=== PATIENT | female | born 1980 | race Caucasian/White ===

== ENCOUNTER 2016-04-04 22:21 | Inpatient (IN) ==
[2016-04-04] MEDS ORDERED: *HR* LORazepam 2 MG/ML VIAL IM ONE (22:38)
--- NOTE | 2016-04-04 22:40 | Emergency Department Note ---
Disposition Clinical Impression: Seizures Disposition: Admitted As Inpatient Condition: Fair Time of Disposition: 06:47 General Adult HPI - General Chief complaint: ED Seizure Stated complaint: seizure Time Seen by Provider: 04/04/16 22:35 Source: patient, EMS Limitations: altered mental status Nursing Notes Reviewed: Yes Vital Signs Reviewed: Yes - History of Present Illness HPI Narrative: Pt is 36yo F arrives via squad with reported seizure activity. Squad reports upon their arrival pt appeared post ictal. No familly at bedside. Squad reports pt had vomitted twice prior to their arrival. Pt unable to provide initial history. Pain Scale: 0 - Related Data Home Medications Medication Instructions Recorded Confirmed Divalproex (24 HR) [Depakote ER 500 mg PO BID 04/05/16 04/05/16 (24 HR)] Gabapentin [Gabapentin] 600 mg PO TID 04/05/16 04/05/16 HydrOXYzine Pamoate [HydrOXYzine 50 mg PO TID 04/05/16 04/05/16 Pamoate] Gallant Carbonate 300 mg PO TID 04/05/16 04/05/16 Mirtazapine [Mirtazapine] 45 mg PO HS 04/05/16 04/05/16 Nicotine Patch [Nicoderm] 21 mg TD DAILY 04/05/16 04/05/16 Prazosin HCl [Prazosin HCl] 2 mg PO HS 04/05/16 04/05/16 Prazosin [Minipress] 1 mg PO HS 04/05/16 04/05/16 Ranitidine HCl [Acid Painter Sign Maintenance] 150 mg PO BID 04/05/16 04/05/16 RisperiDONE [Risperidone] 2 mg PO DAILY 04/05/16 04/05/16 Allergies Allergy/AdvReac Type Severity Reaction Status Date / Time Carbinoxamine [From [facility]] Allergy Swelling Verified 04/05/16 06:51 of Lip/Tongue/Throat chlorpheniramine Allergy Swelling Verified 04/05/16 06:51 [From [facility] (phenylephrin-chlorphn)] Lip/Tongue/Throat phenylephrine Allergy Swelling Verified 04/05/16 06:51 [From [facility] of (phenylephrin-chlorphn)] Lip/Tongue/Throat pseudoephedrine [From [facility]] Allergy Swelling Verified 04/05/16 06:51 of Lip/Tongue/Throat Limitations: ROS unobtainable due to patients medical condition Past Medical History - Past Medical History Medical history: Reports: GERD, hepatitis, seizures, other Surgical history: Reports: other Psychiatric history: Reports: bipolar, depression, PTSD [employer] history: Reports: bilateral tubal ligation - Social History Smoking Status: Current every day smoker Smokeless Tobacco Status: No Alcohol use: Reports: none Drug use: Reports: none, other Physical Exam - General Limitations: altered mental status General appearance: lethargic, other (somnolent) - Head Head exam: atraumatic, normocephalic - Eye Eye exam: Present: EOMI - ENT ENT exam: normal oropharynx - Expanded ENT Exam Mouth exam: Present: other (tongue bite) Teeth exam: Present: normal inspection Throat exam: Present: normal inspection - Neck Neck exam: Present: normal inspection, full ROM. Absent: tenderness - Chest Chest inspection: Present: symmetric chest wall rise - Respiratory Respiratory exam: Present: normal lung sounds bilaterally. Absent: respiratory distress - Cardiovascular Cardiovascular exam: Present: regular rate, tachycardia - Abdominal Exam Abdominal exam: Present: soft, Non-Tender - Extremities Exam Extremities exam: Present: normal inspection, full ROM, normal capillary refill - Back Exam Back exam: Present: full ROM - Expanded Neurological Exam Coma Scale Eye Opening: To Voice Coma Scale Motor Response: Obeys Commands Coma Scale Verbal Response: Confused Coma Scale Total: 13 - Psychiatric Psychiatric exam: Present: normal affect, normal mood - Skin Skin exam: Present: warm, dry, intact, normal color. Absent: rash, cyanosis, diaphoresis Course Course Narrative: Patient arrives by squad with reported seizure. Patient seen upon arrival to exam room. She is restraining and resisting, attempting to climb out of bed. She does not appear to be postictal. Nursing unable to place IV. Patient appears to be a danger to herself. We will place restraints. Haldol 10mg Ativan IM ordered. - Reevaluation(s) Reevaluation #1: Patient continues to seize and had caused her IV to be displaced. Will order additional Ativan. Time: 22:38 Reevaluation #2: Notified by nursing the patient is awake. On examination, patient is alert and oriented 3. She denies any pain. She does state she has a history of seizures , but cannot remember her neurologist. She states her only medication is Neurontin that she takes for the seizures. She states that she has been evaluated for this in the past. Nursing notified to remove restraints. Patient was recently seen in this department for suicidal ideation had been admitted for patient treatment. Upon discussion with her, she denies any suicidal or homicidal ideation, and denies taking any medications, drugs, or any attempt to hurt herself prior to arrival. Time: 00:50 - Consultations Consultation #1: Neurology was paged, and I discussed patient with Dr. Perales, who advised admit patient to hospitalist, for observation, MRI, and further evaluation. Discussed elevated WBC, as well and per Dr. Perales maybe stress related, if not source of infection. He also recommended 1 dose of Keppra 500 mg. Time: 05:53 Vital Signs Temperature 97.6 F 04/04/16 22:24 Pulse Rate 125 04/04/16 22:24 Respiratory Rate 22 04/04/16 22:24 Blood Pressure 87/70 04/04/16 22:24 O2 Sat by Pulse Oximetry 93 L 04/04/16 22:24 Temperature 98.8 F 04/05/16 07:09 Pulse Rate 109 04/05/16 07:36 Respiratory Rate 16 04/05/16 07:36 Blood Pressure 96/62 04/05/16 07:36 O2 Sat by Pulse Oximetry 95 04/05/16 07:36 Oxygen Delivery Oxygen Delivery Room Air Medical Decision Making - [facility] Narrative Medical decision making narrative: 36-year-old female by squad with reported seizure activity. Patient had had witnessed seizures here, with evidence of tongue biting and incontinence. She had been combative upon her arrival, and was placed in restraints, to allow for treatment and to prevent injury to herself. She was given Haldol and Ativan which had calmed her down. Restraints were removed once patient was no longer resisting. Her seizures resided here. And eventually I was able to have a discussion with her after seizures, she was alert and oriented 3. However throughout course she was more somnolent, although arousable. She mentions a history of Neurontin, and is unable to tell me her previous history for seizures or neurologist. She did have an elevated white blood cell count and lactic acid which I attributed to actual seizure. Drug screen and ethanol level were within normal limits. Chest x-ray negative. Head CT negative. Patient was discussed with Dr. Sánchez, who had face time with patient and agreed to admit after contacting neurologist. I had contacted neurologist and spoke with Dr. Perales, who advised admission for further evaluation and MRI,. Patient was accepted by hospitalist for inpatient evaluation and treatment Chest X-Ray 04/05/16 00:00 IMPRESSION: No evidence of acute disease. D/ / Mati Jean-Baptiste MD / Mati Jean-Baptiset MD Interpreting Provider: Mati Jean-Baptiste MD Head CT 04/05/16 00:00 IMPRESSION: Unremarkable exam. No evidence of acute intracranial hemorrhage or mass effect. D/ / Mati Jean-Baptiste MD / Mati Jean-Baptiste MD Interpreting Provider: Mati Jean-Baptiste MD - Lab Data Lab results reviewed: Yes I reviewed the patient's lab results. Result diagrams: 04/05/16 04:13 04/04/16 23:14 Lab Results 04/04/16 04/04/16 04/04/16 Range/Units 23:14 23:14 23:14 WBC 17.6 H (4.3-11.1) K/mcL RBC 3.98 (3.82-4.97) M/mcL Hgb 13.2 (11.5-15.4) g/dL Hct 39.6 (35.3-44.9) % MCV 99.5 (83.0-100.0) fL MCH 33.2 (28.0-33.3) pg MCHC 33.3 (31.6-35.5) g/dL RDW 13.9 (11.5-14.5) % Plt Count 298 (140-400) K/mcL MPV 10.5 (9.4-12.4) fL Immature Gran % 1.3 (0-4) % Seg Neutrophils % 85.6 % Lymphocytes % 7.3 % Monocytes % 5.2 % Eosinophils % 0.1 % Basophils % 0.5 % Neutrophils # 15.1 H (1.6-8.9) K/mcL Lymphocytes # 1.3 (0.6-4.6) K/mcL Monocytes # 0.9 (0.0-1.3) K/mcL Eosinophils # 0.0 (0.0-0.6) K/mcL Basophils # 0.1 (0.0-0.2) K/mcL PT 12.6 H (9.4-12.1) Seconds INR 1.2 APTT 26.8 (26.0-36.0) Seconds Sodium 143 (136-145) mEq/L Potassium 3.5 (3.5-4.5) mEq/L Chloride 108 (98-109) mEq/L Carbon Dioxide 11 L (19-29) mEq/L BUN 7 (7-20) mg/dL Creatinine 1.19 H (0.57-1.11) mg/dL Est GFR ( Amer) > 60 (> 60) Est GFR (Non-Af Amer) 52 L (> 60) BUN/Creatinine Ratio 6 (6-26) Glucose 230 H (70-99) mg/dL POC Glucose (58-89) Calculated Osmolality 301 H (280-300) Lactic Acid (0.5-2.2) mmol/L Calcium 9.3 (8.6-10.8) mg/dL Total Bilirubin 0.2 (0.2-1.2) mg/dL Direct Bilirubin < 0.1 (0.0-0.5) mg/dL Indirect Bilirubin 0.1 (0.0-1.2) mg/dL AST 16 (5-34) Units/L ALT 9 (0-55) Units/L Alkaline Phosphatase 35 L (38-126) Units/L Ammonia (18-72) mcmol/L Creatine Kinase 93 (29-168) Units/L Troponin I (0-0.03) ng/mL Serum Total Protein 7.6 (6.0-8.3) g/dL Albumin 4.1 (3.5-5.0) g/dL Globulin 3.5 (2.4-3.5) g/dL Albumin/Globulin Ratio 1.2 (1.1-2.2) Urine Color (Yellow) Urine Clarity (Clear) Urine pH (5.0-8.0) pH Units Ur Specific [place] (1.010-1.025) Urine Protein (Neg-Trace) mg/dL Urine Glucose (UA) (Normal) mg/dL Urine Ketones (Negative) mg/dL Urine Blood (Negative) Urine Nitrite (Negative) Urine Bilirubin (Negative) Urine Urobilinogen (Normal) mg/dL Ur Leukocyte Esterase (Negative) Ur Culture Indicated? (NO) Urine Test (Negative) Salicylates < 5.0 L (15-30) mg/dL Urine Opiates Screen (Twggvd=111) ng/mL Acetaminophen < 1.0 L (10-30) mcg/mL Ur Barbiturates Screen (Oowbkd=542) ng/mL Phenytoin (10-20) mcg/mL Ur Phencyclidine Scrn (Cutoff=25) ng/mL Ur Amphetamines Screen (Azpqft=1945) ng/mL U Benzodiazepines Scrn (Dxtfnt=795) ng/mL Urine Cocaine Screen (Cutoff= 300) ng/mL U Marijuana (THC) Screen (Cutoff = 50) ng/mL Ethyl Alcohol < 10 (0-10) mg/dL 04/04/16 04/04/16 04/04/16 Range/Units 23:14 23:14 23:14 WBC (4.3-11.1) K/mcL RBC (3.82-4.97) M/mcL Hgb (11.5-15.4) g/dL Hct (35.3-44.9) % MCV (83.0-100.0) fL MCH (28.0-33.3) pg MCHC (31.6-35.5) g/dL RDW (11.5-14.5) % Plt Count (140-400) K/mcL MPV (9.4-12.4) fL Immature Gran % (0-4) % Seg Neutrophils % % Lymphocytes % % Monocytes % % Eosinophils % % Basophils % % Neutrophils # (1.6-8.9) K/mcL Lymphocytes # (0.6-4.6) K/mcL Monocytes # (0.0-1.3) K/mcL Eosinophils # (0.0-0.6) K/mcL Basophils # (0.0-0.2) K/mcL PT (9.4-12.1) Seconds INR APTT (26.0-36.0) Seconds Sodium (136-145) mEq/L Potassium (3.5-4.5) mEq/L Chloride (98-109) mEq/L Carbon Dioxide (19-29) mEq/L BUN (7-20) mg/dL Creatinine (0.57-1.11) mg/dL Est GFR ( Amer) (> 60) Est GFR (Non-Af Amer) (> 60) BUN/Creatinine Ratio (6-26) Glucose (70-99) mg/dL POC Glucose (58-89) Calculated Osmolality (280-300) Lactic Acid 12.4 H* (0.5-2.2) mmol/L Calcium (8.6-10.8) mg/dL Total Bilirubin (0.2-1.2) mg/dL Direct Bilirubin (0.0-0.5) mg/dL Indirect Bilirubin (0.0-1.2) mg/dL AST (5-34) Units/L ALT (0-55) Units/L Alkaline Phosphatase (38-126) Units/L Ammonia 38 (18-72) mcmol/L Creatine Kinase (29-168) Units/L Troponin I 0.01 (0-0.03) ng/mL Serum Total Protein (6.0-8.3) g/dL Albumin (3.5-5.0) g/dL Globulin (2.4-3.5) g/dL Albumin/Globulin Ratio (1.1-2.2) Urine Color (Yellow) Urine Clarity (Clear) Urine pH (5.0-8.0) pH Units Ur Specific [place] (1.010-1.025) Urine Protein (Neg-Trace) mg/dL Urine Glucose (UA) (Normal) mg/dL Urine Ketones (Negative) mg/dL Urine Blood (Negative) Urine Nitrite (Negative) Urine Bilirubin (Negative) Urine Urobilinogen (Normal) mg/dL Ur Leukocyte Esterase (Negative) Ur Culture Indicated? (NO) Urine Test (Negative) Salicylates (15-30) mg/dL Urine Opiates Screen (Gldjgw=535) ng/mL Acetaminophen (10-30) mcg/mL Ur Barbiturates Screen (Torooy=477) ng/mL Phenytoin (10-20) mcg/mL Ur Phencyclidine Scrn (Cutoff=25) ng/mL Ur Amphetamines Screen (Hitjwr=5106) ng/mL U Benzodiazepines Scrn (Fgzqqf=934) ng/mL Urine Cocaine Screen (Cutoff= 300) ng/mL U Marijuana (THC) Screen (Cutoff = 50) ng/mL Ethyl Alcohol (0-10) mg/dL 04/05/16 04/05/16 04/05/16 Range/Units 00:01 00:04 00:04 WBC (4.3-11.1) K/mcL RBC (3.82-4.97) M/mcL Hgb (11.5-15.4) g/dL Hct (35.3-44.9) % MCV (83.0-100.0) fL MCH (28.0-33.3) pg MCHC (31.6-35.5) g/dL RDW (11.5-14.5) % Plt Count (140-400) K/mcL MPV (9.4-12.4) fL Immature Gran % (0-4) % Seg Neutrophils % % Lymphocytes % % Monocytes % % Eosinophils % % Basophils % % Neutrophils # (1.6-8.9) K/mcL Lymphocytes # (0.6-4.6) K/mcL Monocytes # (0.0-1.3) K/mcL Eosinophils # (0.0-0.6) K/mcL Basophils # (0.0-0.2) K/mcL PT (9.4-12.1) Seconds INR APTT (26.0-36.0) Seconds Sodium (136-145) mEq/L Potassium (3.5-4.5) mEq/L Chloride (98-109) mEq/L Carbon Dioxide (19-29) mEq/L BUN (7-20) mg/dL Creatinine (0.57-1.11) mg/dL Est GFR ( Amer) (> 60) Est GFR (Non-Af Amer) (> 60) BUN/Creatinine Ratio (6-26) Glucose (70-99) mg/dL POC Glucose 203 H (58-89) Calculated Osmolality (280-300) Lactic Acid (0.5-2.2) mmol/L Calcium (8.6-10.8) mg/dL Total Bilirubin (0.2-1.2) mg/dL Direct Bilirubin (0.0-0.5) mg/dL Indirect Bilirubin (0.0-1.2) mg/dL AST (5-34) Units/L ALT (0-55) Units/L Alkaline Phosphatase (38-126) Units/L Ammonia (18-72) mcmol/L Creatine Kinase (29-168) Units/L Troponin I (0-0.03) ng/mL Serum Total Protein (6.0-8.3) g/dL Albumin (3.5-5.0) g/dL Globulin (2.4-3.5) g/dL Albumin/Globulin Ratio (1.1-2.2) Urine Color Yellow (Yellow) Urine Clarity Clear (Clear) Urine pH 5.5 (5.0-8.0) pH Units Ur Specific [place] 1.015 (1.010-1.025) Urine Protein Negative (Neg-Trace) mg/dL Urine Glucose (UA) Normal (Normal) mg/dL Urine Ketones Negative (Negative) mg/dL Urine Blood Negative (Negative) Urine Nitrite Negative (Negative) Urine Bilirubin Negative (Negative) Urine Urobilinogen Normal (Normal) mg/dL Ur Leukocyte Esterase Negative (Negative) Ur Culture Indicated? NO (NO) Urine Test (Negative) Salicylates (15-30) mg/dL Urine Opiates Screen Negative (Izxeiz=126) ng/mL Acetaminophen (10-30) mcg/mL Ur Barbiturates Screen Negative (Gdcmqw=401) ng/mL Phenytoin (10-20) mcg/mL Ur Phencyclidine Scrn Negative (Cutoff=25) ng/mL Ur Amphetamines Screen Negative (Jrgdyc=0865) ng/mL U Benzodiazepines Scrn Negative (Fxtpzo=224) ng/mL Urine Cocaine Screen Negative (Cutoff= 300) ng/mL U Marijuana (THC) Screen Negative (Cutoff = 50) ng/mL Ethyl Alcohol (0-10) mg/dL 04/05/16 04/05/16 04/05/16 Range/Units 00:23 01:00 03:47 WBC (4.3-11.1) K/mcL RBC (3.82-4.97) M/mcL Hgb (11.5-15.4) g/dL Hct (35.3-44.9) % MCV (83.0-100.0) fL MCH (28.0-33.3) pg MCHC (31.6-35.5) g/dL RDW (11.5-14.5) % Plt Count (140-400) K/mcL MPV (9.4-12.4) fL Immature Gran % (0-4) % Seg Neutrophils % % Lymphocytes % % Monocytes % % Eosinophils % % Basophils % % Neutrophils # (1.6-8.9) K/mcL Lymphocytes # (0.6-4.6) K/mcL Monocytes # (0.0-1.3) K/mcL Eosinophils # (0.0-0.6) K/mcL Basophils # (0.0-0.2) K/mcL PT (9.4-12.1) Seconds INR APTT (26.0-36.0) Seconds Sodium (136-145) mEq/L Potassium (3.5-4.5) mEq/L Chloride (98-109) mEq/L Carbon Dioxide (19-29) mEq/L BUN (7-20) mg/dL Creatinine (0.57-1.11) mg/dL Est GFR ( Amer) (> 60) Est GFR (Non-Af Amer) (> 60) BUN/Creatinine Ratio (6-26) Glucose (70-99) mg/dL POC Glucose 120 H (58-89) Calculated Osmolality (280-300) Lactic Acid (0.5-2.2) mmol/L Calcium (8.6-10.8) mg/dL Total Bilirubin (0.2-1.2) mg/dL Direct Bilirubin (0.0-0.5) mg/dL Indirect Bilirubin (0.0-1.2) mg/dL AST (5-34) Units/L ALT (0-55) Units/L Alkaline Phosphatase (38-126) Units/L Ammonia (18-72) mcmol/L Creatine Kinase (29-168) Units/L Troponin I (0-0.03) ng/mL Serum Total Protein (6.0-8.3) g/dL Albumin (3.5-5.0) g/dL Globulin (2.4-3.5) g/dL Albumin/Globulin Ratio (1.1-2.2) Urine Color (Yellow) Urine Clarity (Clear) Urine pH (5.0-8.0) pH Units Ur Specific [place] (1.010-1.025) Urine Protein (Neg-Trace) mg/dL Urine Glucose (UA) (Normal) mg/dL Urine Ketones (Negative) mg/dL Urine Blood (Negative) Urine Nitrite (Negative) Urine Bilirubin (Negative) Urine Urobilinogen (Normal) mg/dL Ur Leukocyte Esterase (Negative) Ur Culture Indicated? (NO) Urine Test Negative (Negative) Salicylates (15-30) mg/dL Urine Opiates Screen (Ywkwba=376) ng/mL Acetaminophen (10-30) mcg/mL Ur Barbiturates Screen (Xnmgtr=031) ng/mL Phenytoin < 0.5 L (10-20) mcg/mL Ur Phencyclidine Scrn (Cutoff=25) ng/mL Ur Amphetamines Screen (Tqedcc=7013) ng/mL U Benzodiazepines Scrn (Fieqqh=971) ng/mL Urine Cocaine Screen (Cutoff= 300) ng/mL U Marijuana (THC) Screen (Cutoff = 50) ng/mL Ethyl Alcohol (0-10) mg/dL 04/05/16 04/05/16 Range/Units 04:13 04:13 WBC 18.8 H (4.3-11.1) K/mcL RBC 3.48 L (3.82-4.97) M/mcL Hgb 11.5 D (11.5-15.4) g/dL Hct 33.3 L (35.3-44.9) % MCV 95.7 (83.0-100.0) fL MCH 33.0 (28.0-33.3) pg MCHC 34.5 (31.6-35.5) g/dL RDW 14.0 (11.5-14.5) % Plt Count 241 (140-400) K/mcL MPV 10.5 (9.4-12.4) fL Immature Gran % 0.7 (0-4) % Seg Neutrophils % 87.9 % Lymphocytes % 4.6 % Monocytes % 6.7 % Eosinophils % 0.0 % Basophils % 0.1 % Neutrophils # 16.5 H (1.6-8.9) K/mcL Lymphocytes # 0.9 (0.6-4.6) K/mcL Monocytes # 1.3 (0.0-1.3) K/mcL Eosinophils # 0.0 (0.0-0.6) K/mcL Basophils # 0.0 (0.0-0.2) K/mcL PT (9.4-12.1) Seconds INR APTT (26.0-36.0) Seconds Sodium (136-145) mEq/L Potassium (3.5-4.5) mEq/L Chloride (98-109) mEq/L Carbon Dioxide (19-29) mEq/L BUN (7-20) mg/dL Creatinine (0.57-1.11) mg/dL Est GFR ( Amer) (> 60) Est GFR (Non-Af Amer) (> 60) BUN/Creatinine Ratio (6-26) Glucose (70-99) mg/dL POC Glucose (58-89) Calculated Osmolality (280-300) Lactic Acid 1.5 (0.5-2.2) mmol/L Calcium (8.6-10.8) mg/dL Total Bilirubin (0.2-1.2) mg/dL Direct Bilirubin (0.0-0.5) mg/dL Indirect Bilirubin (0.0-1.2) mg/dL AST (5-34) Units/L ALT (0-55) Units/L Alkaline Phosphatase (38-126) Units/L Ammonia (18-72) mcmol/L Creatine Kinase (29-168) Units/L Troponin I (0-0.03) ng/mL Serum Total Protein (6.0-8.3) g/dL Albumin (3.5-5.0) g/dL Globulin (2.4-3.5) g/dL Albumin/Globulin Ratio (1.1-2.2) Urine Color (Yellow) Urine Clarity (Clear) Urine pH (5.0-8.0) pH Units Ur Specific [place] (1.010-1.025) Urine Protein (Neg-Trace) mg/dL Urine Glucose (UA) (Normal) mg/dL Urine Ketones (Negative) mg/dL Urine Blood (Negative) Urine Nitrite (Negative) Urine Bilirubin (Negative) Urine Urobilinogen (Normal) mg/dL Ur Leukocyte Esterase (Negative) Ur Culture Indicated? (NO) Urine Test (Negative) Salicylates (15-30) mg/dL Urine Opiates Screen (Lbheua=477) ng/mL Acetaminophen (10-30) mcg/mL Ur Barbiturates Screen (Rqpmnj=531) ng/mL Phenytoin (10-20) mcg/mL Ur Phencyclidine Scrn (Cutoff=25) ng/mL Ur Amphetamines Screen (Jinbes=7382) ng/mL U Benzodiazepines Scrn (Bbqgoo=115) ng/mL Urine Cocaine Screen (Cutoff= 300) ng/mL U Marijuana (THC) Screen (Cutoff = 50) ng/mL Ethyl Alcohol (0-10) mg/dL - Radiology Data Radiology results reviewed: Yes I reviewed the patient's radiology results. - EKG Data EKG #1 EKG attestation: Yes I reviewed and interpreted this EKG. EKG results narrative: Sinus tachycardia, no ST changes, nonspecific T-wave abnormality, Attestation Statement - Attestation Attestation: For this encounter, I have reviewed the resident, GETTERER, or PA documentation, treatment plan, and medical decision making; and I have had face to face time with this patient. 36-year-old female brought in by EMS with history of seizure. Patient is a poor historian and is unable to provide history regarding her symptoms. She is postictal on arrival with urinary incontinence and she did bite her tongue. Patient apparently has a history of seizures in the past it is unclear whether she is taking Depakote or gabapentin for seizures. She does not know who she follows for neurology. On initial evaluation the patient was postictal and aggressive in the emergency department. She was a danger to herself and her postictal state, she was given Haldol and Ativan by the PA prior to me seeing the patient. Patient is now quite somnolent on repeat evaluations. PA spoke with the neurologist who recommended admission for further care and MRI. Patient will be admitted to the hospitalist with neurology consult.
[2016-04-04] MEDS ORDERED: Haloperidol Lactate 5 MG/ML VIAL IM ONE (22:44)
[2016-04-04] MEDS ORDERED: Haloperidol Lactate 5 MG/ML VIAL ONE (22:44)
[2016-04-04 23:22] LABS: Basophils # 0.1 K/mcL (0.0-0.2); Basophils % 0.5 %; Eosinophils % 0.1 %; Hematocrit 39.6 % (35.3-44.9); Hemoglobin 13.2 g/dL (11.5-15.4); Immature Granulocytes % 1.3 % (0-4); Lymphocytes # 1.3 K/mcL (0.6-4.6); Lymphocytes % 7.3 %; Mean Corpuscular HGB Conc 33.3 g/dL (31.6-35.5); Mean Corpuscular Hemoglobin 33.2 pg (28.0-33.3); Mean Corpuscular Volume 99.5 fL (83.0-100.0); Mean Platelet Volume 10.5 fL (9.4-12.4); Monocytes # 0.9 K/mcL (0.0-1.3); Monocytes % 5.2 %; Neutrophils # 15.1 K/mcL (1.6-8.9); Platelet Count 298 K/mcL (140-400); Red Blood Count 3.98 M/mcL (3.82-4.97); Red Cell Distribution Width 13.9 % (11.5-14.5); Segmented Neutrophils % 85.6 %
[2016-04-04 23:27] LABS: INR 1.2; Prothrombin Time 12.6 Seconds (9.4-12.1)
[2016-04-04 23:30] LABS: Activated Partial Thrombo Time 26.8 Seconds (26.0-36.0)
[2016-04-04] MEDS ORDERED: *HR* LORazepam 2 MG/ML VIAL IVP ONE (23:33)
[2016-04-04] MEDS ORDERED: 0.9 % Sodium Chloride 1,000 ML IVC ONE (23:34)
[2016-04-04 23:37] LABS: Alanine Aminotransferase 9 Units/L (0-55); Albumin 4.1 g/dL (3.5-5.0); Albumin/Globulin Ratio 1.2 (1.1-2.2); Alkaline Phosphatase 35 Units/L (38-126); Aspartate Amino Transferase 16 Units/L (5-34); BUN/Creatinine Ratio 6 (6-26); Bilirubin,Direct < 0.1 mg/dL (0.0-0.5); Bilirubin,Indirect 0.1 mg/dL (0.0-1.2); Bilirubin,Total 0.2 mg/dL (0.2-1.2); Blood Urea Nitrogen 7 mg/dL (7-20); Calcium 9.3 mg/dL (8.6-10.8); Carbon Dioxide 11 mEq/L (19-29); Chloride 108 mEq/L (98-109); Creatine Kinase 93 Units/L (29-168); Globulin 3.5 g/dL (2.4-3.5); Glucose 230 mg/dL (70-99); Osmolality,Calculated 301 (280-300); Potassium 3.5 mEq/L (3.5-4.5); Sodium 143 mEq/L (136-145); Total Protein 7.6 g/dL (6.0-8.3); eGFR For African Americans > 60 (> 60); eGFR For Non-African Americans 52 (> 60)
[2016-04-04 23:50] LABS: Acetaminophen < 1.0 mcg/mL (10-30); Ethanol < 10 mg/dL (0-10); Salicylate < 5.0 mg/dL (15-30)
[2016-04-05 00:24] LABS: Bilirubin,Urine Negative (Negative); Blood,Urine Negative (Negative); Clarity,Urine Clear (Clear); Color,Urine Yellow (Yellow); Glucose,Urine (UA) Normal (Normal); Ketones,Urine Negative (Negative); Leukocyte Esterase,Urine Negative (Negative); Nitrite,Urine Negative (Negative); PH,Urine 5.5 pH Units (5.0-8.0); Protein,Urine Negative (Neg-Trace); Specific Gravity,Urine 1.015 (1.010-1.025); Urobilinogen,Urine Normal (Normal)
[2016-04-05 00:30] LABS: Amphetamine Screen,Urine Negative ng/mL (Cutoff=1000); Barbiturate Screen,Urine Negative ng/mL (Cutoff=200); Benzodiazepines Screen,Urine Negative ng/mL (Cutoff=200); Cannabinoid Screen,Urine Negative ng/mL (Cutoff = 50); Cocaine Screen,Urine Negative ng/mL (Cutoff= 300); Opiate Screen,Urine Negative ng/mL (Cutoff=300); Phencyclidine Screen,Urine Negative ng/mL (Cutoff=25)
--- NOTE | 2016-04-05 00:47 | Emergency Department Note ---
Disposition Condition: Fair Forms: ED Satisfaction Letter General Adult HPI - General Chief complaint: ED Seizure Stated complaint: seizure Time Seen by Provider: 04/04/16 22:35 Source: patient, EMS Limitations: altered mental status - History of Present Illness Pain Scale: 0 - Related Data Previous Rx's Medication Instructions Recorded Mirtazapine [Remeron] 7.5 mg PO HS #30 tablet 12/13/14 Valacyclovir [Valtrex] 500 mg PO BID tablet 12/13/14 Famotidine [Pepcid] 20 mg PO DAILY #20 tablet 03/28/15 Promethazine [Phenergan] 12.5 mg PO Q8HR #20 tablet 03/28/15 TraMADol [Ultram] 50 mg PO Q6HR #20 tablet 03/28/15 Cephalexin [Keflex] 750 mg PO BID #10 capsule 11/29/15 Allergies Allergy/AdvReac Type Severity Reaction Status Date / Time Carbinoxamine [From [facility]] Allergy Swelling Verified 02/29/16 22:24 of Lip/Tongue/Throat chlorpheniramine Allergy Swelling Verified 02/29/16 22:24 [From [facility] of (phenylephrin-chlorphn)] Lip/Tongue/Throat phenylephrine Allergy Swelling Verified 02/29/16 22:24 [From [facility] of (phenylephrin-chlorphn)] Lip/Tongue/Throat pseudoephedrine [From [facility]] Allergy Swelling Verified 02/29/16 22:24 of Lip/Tongue/Throat Past Medical History - Past Medical History Medical history: Reports: GERD, hepatitis, seizures, other Surgical history: Reports: other Psychiatric history: Reports: bipolar, depression, PTSD [employer] history: Reports: bilateral tubal ligation - Social History Smoking Status: Current every day smoker Smokeless Tobacco Status: No Alcohol use: Reports: none Drug use: Reports: none, other Physical Exam - General Limitations: altered mental status General appearance: lethargic Course Vital Signs Temperature 97.6 F 04/04/16 22:24 Pulse Rate 125 04/04/16 22:24 Respiratory Rate 22 04/04/16 22:24 Blood Pressure 87/70 04/04/16 22:24 O2 Sat by Pulse Oximetry 93 L 04/04/16 22:24 Temperature 97.8 F 04/05/16 00:05 Pulse Rate 102 04/05/16 00:08 Respiratory Rate 18 04/05/16 00:08 Blood Pressure 109/61 04/05/16 00:08 O2 Sat by Pulse Oximetry 96 04/05/16 00:08 Oxygen Delivery Oxygen Delivery Non Rebreather Mask Medical Decision Making - Lab Data Result diagrams: 04/04/16 23:14 04/04/16 23:14 Lab Results 04/04/16 04/04/16 04/04/16 Range/Units 23:14 23:14 23:14 WBC 17.6 H (4.3-11.1) K/mcL RBC 3.98 (3.82-4.97) M/mcL Hgb 13.2 (11.5-15.4) g/dL Hct 39.6 (35.3-44.9) % MCV 99.5 (83.0-100.0) fL MCH 33.2 (28.0-33.3) pg MCHC 33.3 (31.6-35.5) g/dL RDW 13.9 (11.5-14.5) % Plt Count 298 (140-400) K/mcL MPV 10.5 (9.4-12.4) fL Immature Gran % 1.3 (0-4) % Seg Neutrophils % 85.6 % Lymphocytes % 7.3 % Monocytes % 5.2 % Eosinophils % 0.1 % Basophils % 0.5 % Neutrophils # 15.1 H (1.6-8.9) K/mcL Lymphocytes # 1.3 (0.6-4.6) K/mcL Monocytes # 0.9 (0.0-1.3) K/mcL Eosinophils # 0.0 (0.0-0.6) K/mcL Basophils # 0.1 (0.0-0.2) K/mcL PT 12.6 H (9.4-12.1) Seconds INR 1.2 APTT 26.8 (26.0-36.0) Seconds Sodium 143 (136-145) mEq/L Potassium 3.5 (3.5-4.5) mEq/L Chloride 108 (98-109) mEq/L Carbon Dioxide 11 L (19-29) mEq/L BUN 7 (7-20) mg/dL Creatinine 1.19 H (0.57-1.11) mg/dL Est GFR ( Amer) > 60 (> 60) Est GFR (Non-Af Amer) 52 L (> 60) BUN/Creatinine Ratio 6 (6-26) Glucose 230 H (70-99) mg/dL Calculated Osmolality 301 H (280-300) Lactic Acid (0.5-2.2) mmol/L Calcium 9.3 (8.6-10.8) mg/dL Total Bilirubin 0.2 (0.2-1.2) mg/dL Direct Bilirubin < 0.1 (0.0-0.5) mg/dL Indirect Bilirubin 0.1 (0.0-1.2) mg/dL AST 16 (5-34) Units/L ALT 9 (0-55) Units/L Alkaline Phosphatase 35 L (38-126) Units/L Ammonia (18-72) mcmol/L Creatine Kinase 93 (29-168) Units/L Troponin I (0-0.03) ng/mL Serum Total Protein 7.6 (6.0-8.3) g/dL Albumin 4.1 (3.5-5.0) g/dL Globulin 3.5 (2.4-3.5) g/dL Albumin/Globulin Ratio 1.2 (1.1-2.2) Urine Color (Yellow) Urine Clarity (Clear) Urine pH (5.0-8.0) pH Units Ur Specific [place] (1.010-1.025) Urine Protein (Neg-Trace) mg/dL Urine Glucose (UA) (Normal) mg/dL Urine Ketones (Negative) mg/dL Urine Blood (Negative) Urine Nitrite (Negative) Urine Bilirubin (Negative) Urine Urobilinogen (Normal) mg/dL Ur Leukocyte Esterase (Negative) Ur Culture Indicated? (NO) Salicylates < 5.0 L (15-30) mg/dL Urine Opiates Screen (Tfsdxa=730) ng/mL Acetaminophen < 1.0 L (10-30) mcg/mL Ur Barbiturates Screen (Ldqiru=817) ng/mL Ur Phencyclidine Scrn (Cutoff=25) ng/mL Ur Amphetamines Screen (Zgyqwb=8571) ng/mL U Benzodiazepines Scrn (Mhrxgd=388) ng/mL Urine Cocaine Screen (Cutoff= 300) ng/mL U Marijuana (THC) Screen (Cutoff = 50) ng/mL Ethyl Alcohol < 10 (0-10) mg/dL 0104/04/16 04/04/16 Range/Units 23:14 23:14 23:14 WBC (4.3-11.1) K/mcL RBC (3.82-4.97) M/mcL Hgb (11.5-15.4) g/dL Hct (35.3-44.9) % MCV (83.0-100.0) fL MCH (28.0-33.3) pg MCHC (31.6-35.5) g/dL RDW (11.5-14.5) % Plt Count (140-400) K/mcL MPV (9.4-12.4) fL Immature Gran % (0-4) % Seg Neutrophils % % Lymphocytes % % Monocytes % % Eosinophils % % Basophils % % Neutrophils # (1.6-8.9) K/mcL Lymphocytes # (0.6-4.6) K/mcL Monocytes # (0.0-1.3) K/mcL Eosinophils # (0.0-0.6) K/mcL Basophils # (0.0-0.2) K/mcL PT (9.4-12.1) Seconds INR APTT (26.0-36.0) Seconds Sodium (136-145) mEq/L Potassium (3.5-4.5) mEq/L Chloride (98-109) mEq/L Carbon Dioxide (19-29) mEq/L BUN (7-20) mg/dL Creatinine (0.57-1.11) mg/dL Est GFR ( Amer) (> 60) Est GFR (Non-Af Amer) (> 60) BUN/Creatinine Ratio (6-26) Glucose (70-99) mg/dL Calculated Osmolality (280-300) Lactic Acid 12.4 H* (0.5-2.2) mmol/L Calcium (8.6-10.8) mg/dL Total Bilirubin (0.2-1.2) mg/dL Direct Bilirubin (0.0-0.5) mg/dL Indirect Bilirubin (0.0-1.2) mg/dL AST (5-34) Units/L ALT (0-55) Units/L Alkaline Phosphatase (38-126) Units/L Ammonia 38 (18-72) mcmol/L Creatine Kinase (29-168) Units/L Troponin I 0.01 (0-0.03) ng/mL Serum Total Protein (6.0-8.3) g/dL Albumin (3.5-5.0) g/dL Globulin (2.4-3.5) g/dL Albumin/Globulin Ratio (1.1-2.2) Urine Color (Yellow) Urine Clarity (Clear) Urine pH (5.0-8.0) pH Units Ur Specific [place] (1.010-1.025) Urine Protein (Neg-Trace) mg/dL Urine Glucose (UA) (Normal) mg/dL Urine Ketones (Negative) mg/dL Urine Blood (Negative) Urine Nitrite (Negative) Urine Bilirubin (Negative) Urine Urobilinogen (Normal) mg/dL Ur Leukocyte Esterase (Negative) Ur Culture Indicated? (NO) Salicylates (15-30) mg/dL Urine Opiates Screen (Kvpypv=715) ng/mL Acetaminophen (10-30) mcg/mL Ur Barbiturates Screen (Cbmfng=287) ng/mL Ur Phencyclidine Scrn (Cutoff=25) ng/mL Ur Amphetamines Screen (Jfckrl=1963) ng/mL U Benzodiazepines Scrn (Sbbhpp=628) ng/mL Urine Cocaine Screen (Cutoff= 300) ng/mL U Marijuana (THC) Screen (Cutoff = 50) ng/mL Ethyl Alcohol (0-10) mg/dL 04/05/16 04/05/16 Range/Units 00:04 00:04 WBC (4.3-11.1) K/mcL RBC (3.82-4.97) M/mcL Hgb (11.5-15.4) g/dL Hct (35.3-44.9) % MCV (83.0-100.0) fL MCH (28.0-33.3) pg MCHC (31.6-35.5) g/dL RDW (11.5-14.5) % Plt Count (140-400) K/mcL MPV (9.4-12.4) fL Immature Gran % (0-4) % Seg Neutrophils % % Lymphocytes % % Monocytes % % Eosinophils % % Basophils % % Neutrophils # (1.6-8.9) K/mcL Lymphocytes # (0.6-4.6) K/mcL Monocytes # (0.0-1.3) K/mcL Eosinophils # (0.0-0.6) K/mcL Basophils # (0.0-0.2) K/mcL PT (9.4-12.1) Seconds INR APTT (26.0-36.0) Seconds Sodium (136-145) mEq/L Potassium (3.5-4.5) mEq/L Chloride (98-109) mEq/L Carbon Dioxide (19-29) mEq/L BUN (7-20) mg/dL Creatinine (0.57-1.11) mg/dL Est GFR ( Amer) (> 60) Est GFR (Non-Af Amer) (> 60) BUN/Creatinine Ratio (6-26) Glucose (70-99) mg/dL Calculated Osmolality (280-300) Lactic Acid (0.5-2.2) mmol/L Calcium (8.6-10.8) mg/dL Total Bilirubin (0.2-1.2) mg/dL Direct Bilirubin (0.0-0.5) mg/dL Indirect Bilirubin (0.0-1.2) mg/dL AST (5-34) Units/L ALT (0-55) Units/L Alkaline Phosphatase (38-126) Units/L Ammonia (18-72) mcmol/L Creatine Kinase (29-168) Units/L Troponin I (0-0.03) ng/mL Serum Total Protein (6.0-8.3) g/dL Albumin (3.5-5.0) g/dL Globulin (2.4-3.5) g/dL Albumin/Globulin Ratio (1.1-2.2) Urine Color Yellow (Yellow) Urine Clarity Clear (Clear) Urine pH 5.5 (5.0-8.0) pH Units Ur Specific [place] 1.015 (1.010-1.025) Urine Protein Negative (Neg-Trace) mg/dL Urine Glucose (UA) Normal (Normal) mg/dL Urine Ketones Negative (Negative) mg/dL Urine Blood Negative (Negative) Urine Nitrite Negative (Negative) Urine Bilirubin Negative (Negative) Urine Urobilinogen Normal (Normal) mg/dL Ur Leukocyte Esterase Negative (Negative) Ur Culture Indicated? NO (NO) Salicylates (15-30) mg/dL Urine Opiates Screen Negative (Qxzfsm=686) ng/mL Acetaminophen (10-30) mcg/mL Ur Barbiturates Screen Negative (Cbpavm=772) ng/mL Ur Phencyclidine Scrn Negative (Cutoff=25) ng/mL Ur Amphetamines Screen Negative (Rlpftn=6201) ng/mL U Benzodiazepines Scrn Negative (Ppbdvj=825) ng/mL Urine Cocaine Screen Negative (Cutoff= 300) ng/mL U Marijuana (THC) Screen Negative (Cutoff = 50) ng/mL Ethyl Alcohol (0-10) mg/dL
[2016-04-05] MEDS ORDERED: Ondansetron 4 MG/2 ML VIAL IVP ONE (01:05)
[2016-04-05] MEDS ORDERED: 0.9 % Sodium Chloride 1,000 ML IVC ONE (01:46)
[2016-04-05 04:20] LABS: Basophils % 0.1 %; Hematocrit 33.3 % (35.3-44.9); Hemoglobin 11.5 g/dL (11.5-15.4); Immature Granulocytes % 0.7 % (0-4); Lymphocytes # 0.9 K/mcL (0.6-4.6); Lymphocytes % 4.6 %; Mean Corpuscular HGB Conc 34.5 g/dL (31.6-35.5); Mean Corpuscular Volume 95.7 fL (83.0-100.0); Mean Platelet Volume 10.5 fL (9.4-12.4); Monocytes # 1.3 K/mcL (0.0-1.3); Monocytes % 6.7 %; Neutrophils # 16.5 K/mcL (1.6-8.9); Platelet Count 241 K/mcL (140-400); Red Blood Count 3.48 M/mcL (3.82-4.97); Segmented Neutrophils % 87.9 %
[2016-04-05] MEDS ORDERED: Naloxone 0.4 MG/ML INJ IVP PRN (06:38)
[2016-04-05] MEDS ORDERED: Acetaminophen 325 MG TABLET PO PRN (06:38)
[2016-04-05] MEDS ORDERED: Ondansetron 4 MG/2 ML VIAL IVP PRN (06:38)
--- NOTE | 2016-04-05 06:52 | Internal Med History&Physical ---
Date of Encounter: 04/05/16 Time of Encounter: 06:30 Internal Medicine - H&P: HPI Chief complaint: seizure episode Admitted From: Emergency Dept Plans for Post Hospital Care: Home History of present illness: Ms. Torres is a 36 year old female with history of seizure disorder and psychiatry diagnosis including bemzodiazepine deendenpece was brought in by EMS on account of break-through seizure. Not much information was obtained from the patient when she arrived the ED, BUT SHE DID INDICATE SHE has seizure disorder and that she takes Gabapentin. Look out of her prior records also show she was taking Depakote at one time, uncertain if this was for mood or seizure disorder. She is now drowsy either from administration of Ativan and haloperiodl by ED staff or just post ictal. No further information is available to me at this time. It appears patient has been admitted to Psychiatry with suicidal ideation and depression in the past. I am unable to perform ROS. I am unable to confirm her code status as she is drowsy. One Pickell, Pardeep ) is listed on her facesheet as her life partner. I eventually got in touch with Pardeep, he tells me he is her life partner. He reports she has seizure disorder, he thinks she has been compliant with her medication. He says she has been worked up for seizures in the past. He witnessed the event yesterday. He appears to describe a tonic clonic seizure. It lasted less than 5 minutes, post itcal phase was in hours rather than minutes.He does not know if she lost urinary continence, he is certain she did not lose fecal continence, he did not observe she bit her tongue. He only called in the EMS because this seizure episode was longer than usual and the she did not come around as fast as she use to. He wants her a FULL CODE. He says she get Gabapentin for seizures, he is not sure of her dosage but will bring the bottles to the hospital later in the day. 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 Vital Signs Temperature 97.6 F 04/04/16 22:24 Pulse Rate 125 04/04/16 22:24 Respiratory Rate 22 04/04/16 22:24 Blood Pressure 87/70 04/04/16 22:24 O2 Sat by Pulse Oximetry 93 L 04/04/16 22:24 Temperature 97.8 F 04/05/16 00:05 Pulse Rate 100 04/05/16 05:53 Respiratory Rate 16 04/05/16 05:53 Blood Pressure 104/70 04/05/16 05:53 O2 Sat by Pulse Oximetry 98 04/05/16 05:53 O/E: Not in distress, not pale, anicteric, afebrile,acyanotic, drowsy, arousable but goes back to sleep HEENT: Trachea is central, no cervical or jugular lymphadenopathy Chest: CTAB. Chest pain is not reproducible Heart:rrr, hs1/2 Abdomen: non-distended,soft, , non-tender,no masses. 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 Psychaitry: Unable to assess. Extremities: no pedal normal pedal pulses, no calf tenderness SKIN: No active skin lesion Lab Results 04/04/16 04/04/16 04/04/16 Range/Units 23:14 23:14 23:14 WBC 17.6 H (4.3-11.1) K/mcL RBC 3.98 (3.82-4.97) M/mcL Hgb 13.2 (11.5-15.4) g/dL Hct 39.6 (35.3-44.9) % MCV 99.5 (83.0-100.0) fL MCH 33.2 (28.0-33.3) pg MCHC 33.3 (31.6-35.5) g/dL RDW 13.9 (11.5-14.5) % Plt Count 298 (140-400) K/mcL MPV 10.5 (9.4-12.4) fL Immature Gran % 1.3 (0-4) % Seg Neutrophils % 85.6 % Lymphocytes % 7.3 % Monocytes % 5.2 % Eosinophils % 0.1 % Basophils % 0.5 % Neutrophils # 15.1 H (1.6-8.9) K/mcL Lymphocytes # 1.3 (0.6-4.6) K/mcL Monocytes # 0.9 (0.0-1.3) K/mcL Eosinophils # 0.0 (0.0-0.6) K/mcL Basophils # 0.1 (0.0-0.2) K/mcL PT 12.6 H (9.4-12.1) Seconds INR 1.2 APTT 26.8 (26.0-36.0) Seconds Sodium 143 (136-145) mEq/L Potassium 3.5 (3.5-4.5) mEq/L Chloride 108 (98-109) mEq/L Carbon Dioxide 11 L (19-29) mEq/L BUN 7 (7-20) mg/dL Creatinine 1.19 H (0.57-1.11) mg/dL Est GFR ( Amer) > 60 (> 60) Est GFR (Non-Af Amer) 52 L (> 60) BUN/Creatinine Ratio 6 (6-26) Glucose 230 H (70-99) mg/dL POC Glucose (58-89) Calculated Osmolality 301 H (280-300) Lactic Acid (0.5-2.2) mmol/L Calcium 9.3 (8.6-10.8) mg/dL Total Bilirubin 0.2 (0.2-1.2) mg/dL Direct Bilirubin < 0.1 (0.0-0.5) mg/dL Indirect Bilirubin 0.1 (0.0-1.2) mg/dL AST 16 (5-34) Units/L ALT 9 (0-55) Units/L Alkaline Phosphatase 35 L (38-126) Units/L Ammonia (18-72) mcmol/L Creatine Kinase 93 (29-168) Units/L Troponin I (0-0.03) ng/mL Serum Total Protein 7.6 (6.0-8.3) g/dL Albumin 4.1 (3.5-5.0) g/dL Globulin 3.5 (2.4-3.5) g/dL Albumin/Globulin Ratio 1.2 (1.1-2.2) Urine Color (Yellow) Urine Clarity (Clear) Urine pH (5.0-8.0) pH Units Ur Specific [place] (1.010-1.025) Urine Protein (Neg-Trace) mg/dL Urine Glucose (UA) (Normal) mg/dL Urine Ketones (Negative) mg/dL Urine Blood (Negative) Urine Nitrite (Negative) Urine Bilirubin (Negative) Urine Urobilinogen (Normal) mg/dL Ur Leukocyte Esterase (Negative) Ur Culture Indicated? (NO) Urine Test (Negative) Salicylates < 5.0 L (15-30) mg/dL Urine Opiates Screen (Anxrcj=099) ng/mL Acetaminophen < 1.0 L (10-30) mcg/mL Ur Barbiturates Screen (Uikmxi=258) ng/mL Phenytoin (10-20) mcg/mL Ur Phencyclidine Scrn (Cutoff=25) ng/mL Ur Amphetamines Screen (Bidmce=2881) ng/mL U Benzodiazepines Scrn (Gyuoca=432) ng/mL Urine Cocaine Screen (Cutoff= 300) ng/mL U Marijuana (THC) Screen (Cutoff = 50) ng/mL Ethyl Alcohol < 10 (0-10) mg/dL 04/04/16 04/04/16 04/04/16 Range/Units 23:14 23:14 23:14 WBC (4.3-11.1) K/mcL RBC (3.82-4.97) M/mcL Hgb (11.5-15.4) g/dL Hct (35.3-44.9) % MCV (83.0-100.0) fL MCH (28.0-33.3) pg MCHC (31.6-35.5) g/dL RDW (11.5-14.5) % Plt Count (140-400) K/mcL MPV (9.4-12.4) fL Immature Gran % (0-4) % Seg Neutrophils % % Lymphocytes % % Monocytes % % Eosinophils % % Basophils % % Neutrophils # (1.6-8.9) K/mcL Lymphocytes # (0.6-4.6) K/mcL Monocytes # (0.0-1.3) K/mcL Eosinophils # (0.0-0.6) K/mcL Basophils # (0.0-0.2) K/mcL PT (9.4-12.1) Seconds INR APTT (26.0-36.0) Seconds Sodium (136-145) mEq/L Potassium (3.5-4.5) mEq/L Chloride (98-109) mEq/L Carbon Dioxide (19-29) mEq/L BUN (7-20) mg/dL Creatinine (0.57-1.11) mg/dL Est GFR ( Amer) (> 60) Est GFR (Non-Af Amer) (> 60) BUN/Creatinine Ratio (6-26) Glucose (70-99) mg/dL POC Glucose (58-89) Calculated Osmolality (280-300) Lactic Acid 12.4 H* (0.5-2.2) mmol/L Calcium (8.6-10.8) mg/dL Total Bilirubin (0.2-1.2) mg/dL Direct Bilirubin (0.0-0.5) mg/dL Indirect Bilirubin (0.0-1.2) mg/dL AST (5-34) Units/L ALT (0-55) Units/L Alkaline Phosphatase (38-126) Units/L Ammonia 38 (18-72) mcmol/L Creatine Kinase (29-168) Units/L Troponin I 0.01 (0-0.03) ng/mL Serum Total Protein (6.0-8.3) g/dL Albumin (3.5-5.0) g/dL Globulin (2.4-3.5) g/dL Albumin/Globulin Ratio (1.1-2.2) Urine Color (Yellow) Urine Clarity (Clear) Urine pH (5.0-8.0) pH Units Ur Specific [place] (1.010-1.025) Urine Protein (Neg-Trace) mg/dL Urine Glucose (UA) (Normal) mg/dL Urine Ketones (Negative) mg/dL Urine Blood (Negative) Urine Nitrite (Negative) Urine Bilirubin (Negative) Urine Urobilinogen (Normal) mg/dL Ur Leukocyte Esterase (Negative) Ur Culture Indicated? (NO) Urine Test (Negative) Salicylates (15-30) mg/dL Urine Opiates Screen (Wshomt=517) ng/mL Acetaminophen (10-30) mcg/mL Ur Barbiturates Screen (Nggyyt=696) ng/mL Phenytoin (10-20) mcg/mL Ur Phencyclidine Scrn (Cutoff=25) ng/mL Ur Amphetamines Screen (Imhnpp=0165) ng/mL U Benzodiazepines Scrn (Onankq=099) ng/mL Urine Cocaine Screen (Cutoff= 300) ng/mL U Marijuana (THC) Screen (Cutoff = 50) ng/mL Ethyl Alcohol (0-10) mg/dL 04/05/16 04/05/16 04/05/16 Range/Units 00:01 00:04 00:04 WBC (4.3-11.1) K/mcL RBC (3.82-4.97) M/mcL Hgb (11.5-15.4) g/dL Hct (35.3-44.9) % MCV (83.0-100.0) fL MCH (28.0-33.3) pg MCHC (31.6-35.5) g/dL RDW (11.5-14.5) % Plt Count (140-400) K/mcL MPV (9.4-12.4) fL Immature Gran % (0-4) % Seg Neutrophils % % Lymphocytes % % Monocytes % % Eosinophils % % Basophils % % Neutrophils # (1.6-8.9) K/mcL Lymphocytes # (0.6-4.6) K/mcL Monocytes # (0.0-1.3) K/mcL Eosinophils # (0.0-0.6) K/mcL Basophils # (0.0-0.2) K/mcL PT (9.4-12.1) Seconds INR APTT (26.0-36.0) Seconds Sodium (136-145) mEq/L Potassium (3.5-4.5) mEq/L Chloride (98-109) mEq/L Carbon Dioxide (19-29) mEq/L BUN (7-20) mg/dL Creatinine (0.57-1.11) mg/dL Est GFR ( Amer) (> 60) Est GFR (Non-Af Amer) (> 60) BUN/Creatinine Ratio (6-26) Glucose (70-99) mg/dL POC Glucose 203 H (58-89) Calculated Osmolality (280-300) Lactic Acid (0.5-2.2) mmol/L Calcium (8.6-10.8) mg/dL Total Bilirubin (0.2-1.2) mg/dL Direct Bilirubin (0.0-0.5) mg/dL Indirect Bilirubin (0.0-1.2) mg/dL AST (5-34) Units/L ALT (0-55) Units/L Alkaline Phosphatase (38-126) Units/L Ammonia (18-72) mcmol/L Creatine Kinase (29-168) Units/L Troponin I (0-0.03) ng/mL Serum Total Protein (6.0-8.3) g/dL Albumin (3.5-5.0) g/dL Globulin (2.4-3.5) g/dL Albumin/Globulin Ratio (1.1-2.2) Urine Color Yellow (Yellow) Urine Clarity Clear (Clear) Urine pH 5.5 (5.0-8.0) pH Units Ur Specific [place] 1.015 (1.010-1.025) Urine Protein Negative (Neg-Trace) mg/dL Urine Glucose (UA) Normal (Normal) mg/dL Urine Ketones Negative (Negative) mg/dL Urine Blood Negative (Negative) Urine Nitrite Negative (Negative) Urine Bilirubin Negative (Negative) Urine Urobilinogen Normal (Normal) mg/dL Ur Leukocyte Esterase Negative (Negative) Ur Culture Indicated? NO (NO) Urine Test (Negative) Salicylates (15-30) mg/dL Urine Opiates Screen Negative (Recnli=293) ng/mL Acetaminophen (10-30) mcg/mL Ur Barbiturates Screen Negative (Xgttnd=861) ng/mL Phenytoin (10-20) mcg/mL Ur Phencyclidine Scrn Negative (Cutoff=25) ng/mL Ur Amphetamines Screen Negative (Drpfwz=0060) ng/mL U Benzodiazepines Scrn Negative (Hcpoxz=514) ng/mL Urine Cocaine Screen Negative (Cutoff= 300) ng/mL U Marijuana (THC) Screen Negative (Cutoff = 50) ng/mL Ethyl Alcohol (0-10) mg/dL 04/05/16 04/05/16 04/05/16 Range/Units 00:23 01:00 03:47 WBC (4.3-11.1) K/mcL RBC (3.82-4.97) M/mcL Hgb (11.5-15.4) g/dL Hct (35.3-44.9) % MCV (83.0-100.0) fL MCH (28.0-33.3) pg MCHC (31.6-35.5) g/dL RDW (11.5-14.5) % Plt Count (140-400) K/mcL MPV (9.4-12.4) fL Immature Gran % (0-4) % Seg Neutrophils % % Lymphocytes % % Monocytes % % Eosinophils % % Basophils % % Neutrophils # (1.6-8.9) K/mcL Lymphocytes # (0.6-4.6) K/mcL Monocytes # (0.0-1.3) K/mcL Eosinophils # (0.0-0.6) K/mcL Basophils # (0.0-0.2) K/mcL PT (9.4-12.1) Seconds INR APTT (26.0-36.0) Seconds Sodium (136-145) mEq/L Potassium (3.5-4.5) mEq/L Chloride (98-109) mEq/L Carbon Dioxide (19-29) mEq/L BUN (7-20) mg/dL Creatinine (0.57-1.11) mg/dL Est GFR ( Amer) (> 60) Est GFR (Non-Af Amer) (> 60) BUN/Creatinine Ratio (6-26) Glucose (70-99) mg/dL POC Glucose 120 H (58-89) Calculated Osmolality (280-300) Lactic Acid (0.5-2.2) mmol/L Calcium (8.6-10.8) mg/dL Total Bilirubin (0.2-1.2) mg/dL Direct Bilirubin (0.0-0.5) mg/dL Indirect Bilirubin (0.0-1.2) mg/dL AST (5-34) Units/L ALT (0-55) Units/L Alkaline Phosphatase (38-126) Units/L Ammonia (18-72) mcmol/L Creatine Kinase (29-168) Units/L Troponin I (0-0.03) ng/mL Serum Total Protein (6.0-8.3) g/dL Albumin (3.5-5.0) g/dL Globulin (2.4-3.5) g/dL Albumin/Globulin Ratio (1.1-2.2) Urine Color (Yellow) Urine Clarity (Clear) Urine pH (5.0-8.0) pH Units Ur Specific [place] (1.010-1.025) Urine Protein (Neg-Trace) mg/dL Urine Glucose (UA) (Normal) mg/dL Urine Ketones (Negative) mg/dL Urine Blood (Negative) Urine Nitrite (Negative) Urine Bilirubin (Negative) Urine Urobilinogen (Normal) mg/dL Ur Leukocyte Esterase (Negative) Ur Culture Indicated? (NO) Urine Test Negative (Negative) Salicylates (15-30) mg/dL Urine Opiates Screen (Bgdgjh=852) ng/mL Acetaminophen (10-30) mcg/mL Ur Barbiturates Screen (Aovbnt=029) ng/mL Phenytoin < 0.5 L (10-20) mcg/mL Ur Phencyclidine Scrn (Cutoff=25) ng/mL Ur Amphetamines Screen (Ievjzv=3316) ng/mL U Benzodiazepines Scrn (Wwkemb=655) ng/mL Urine Cocaine Screen (Cutoff= 300) ng/mL U Marijuana (THC) Screen (Cutoff = 50) ng/mL Ethyl Alcohol (0-10) mg/dL 04/05/16 04/05/16 Range/Units 04:13 04:13 WBC 18.8 H (4.3-11.1) K/mcL RBC 3.48 L (3.82-4.97) M/mcL Hgb 11.5 D (11.5-15.4) g/dL Hct 33.3 L (35.3-44.9) % MCV 95.7 (83.0-100.0) fL MCH 33.0 (28.0-33.3) pg MCHC 34.5 (31.6-35.5) g/dL RDW 14.0 (11.5-14.5) % Plt Count 241 (140-400) K/mcL MPV 10.5 (9.4-12.4) fL Immature Gran % 0.7 (0-4) % Seg Neutrophils % 87.9 % Lymphocytes % 4.6 % Monocytes % 6.7 % Eosinophils % 0.0 % Basophils % 0.1 % Neutrophils # 16.5 H (1.6-8.9) K/mcL Lymphocytes # 0.9 (0.6-4.6) K/mcL Monocytes # 1.3 (0.0-1.3) K/mcL Eosinophils # 0.0 (0.0-0.6) K/mcL Basophils # 0.0 (0.0-0.2) K/mcL PT (9.4-12.1) Seconds INR APTT (26.0-36.0) Seconds Sodium (136-145) mEq/L Potassium (3.5-4.5) mEq/L Chloride (98-109) mEq/L Carbon Dioxide (19-29) mEq/L BUN (7-20) mg/dL Creatinine (0.57-1.11) mg/dL Est GFR ( Amer) (> 60) Est GFR (Non-Af Amer) (> 60) BUN/Creatinine Ratio (6-26) Glucose (70-99) mg/dL POC Glucose (58-89) Calculated Osmolality (280-300) Lactic Acid 1.5 (0.5-2.2) mmol/L Calcium (8.6-10.8) mg/dL Total Bilirubin (0.2-1.2) mg/dL Direct Bilirubin (0.0-0.5) mg/dL Indirect Bilirubin (0.0-1.2) mg/dL AST (5-34) Units/L ALT (0-55) Units/L Alkaline Phosphatase (38-126) Units/L Ammonia (18-72) mcmol/L Creatine Kinase (29-168) Units/L Troponin I (0-0.03) ng/mL Serum Total Protein (6.0-8.3) g/dL Albumin (3.5-5.0) g/dL Globulin (2.4-3.5) g/dL Albumin/Globulin Ratio (1.1-2.2) Urine Color (Yellow) Urine Clarity (Clear) Urine pH (5.0-8.0) pH Units Ur Specific [place] (1.010-1.025) Urine Protein (Neg-Trace) mg/dL Urine Glucose (UA) (Normal) mg/dL Urine Ketones (Negative) mg/dL Urine Blood (Negative) Urine Nitrite (Negative) Urine Bilirubin (Negative) Urine Urobilinogen (Normal) mg/dL Ur Leukocyte Esterase (Negative) Ur Culture Indicated? (NO) Urine Test (Negative) Salicylates (15-30) mg/dL Urine Opiates Screen (Otobif=315) ng/mL Acetaminophen (10-30) mcg/mL Ur Barbiturates Screen (Jgtggr=908) ng/mL Phenytoin (10-20) mcg/mL Ur Phencyclidine Scrn (Cutoff=25) ng/mL Ur Amphetamines Screen (Uresxn=6397) ng/mL U Benzodiazepines Scrn (Qygxuv=686) ng/mL Urine Cocaine Screen (Cutoff= 300) ng/mL U Marijuana (THC) Screen (Cutoff = 50) ng/mL Ethyl Alcohol (0-10) mg/dL EKG: ST. otherwise normal. Chest X-Ray 04/05/16 00:00 No evidence of acute disease. Head CT 04/05/16 00:00 Unremarkable exam. No evidence of acute intracranial hemorrhage or mass effect. IMP Break-through seizure, uncertain about medication compliance. Partner however describes a longer seizure with longer post itch phase. I cannot exclude superimposed drug withdrawal seizures considering she has a history of benzodiazepine withdrawal in the past. Urine drug screen is negative. Lactic acidosis resolved with hydration, related to seizure episode Leucocytosis is reactive. Chronic morbidities bipolar depression PTSD PLAN Admit Seizure precaution Keppra loading 1g IV stat (received 500mg in the ED, give another 500mg IV, then 500mg PO BID. Not sure of her dose of Gabapentin, stat with 200mg po TID, ADJUST DOSAGE WHEN partner brings in her bottles of medications. IVF RL @ 100. Neurologist consult EEG Considering she has a history of seizure disorder and head CT is negative for acute findings, I do not see the need for MRI, THE CHANGE IN PATTERN may be related to drug withdrawal effect on baseline seizure disorder considering her history of benzodiazepine dependence and withdrawal. MRI is unlikely to add any value to her care. Attempt to obtain records related to epilepsy care from her provider in [facility] in [place]. No indication for DVT prophylaxis. Continue other medications of chronic morbidities when the list is available. I discussed my findings and assessment with the patient's life partner, he verbalized understanding and is agreeable to her admission. Though this is a break-through seizure, the change in pattern in lenth of seizure and duration of post-ictal phase informs the decision to keep patient for observation. Past Med Surg Social Fam HX - Past Medical History Medical history: GERD, hepatitis, seizures, other Psychiatric history: bipolar, depression, PTSD - Past Surgical History Surgical History: other - Social History Smoking Status: Current every day smoker Smokeless Tobacco Status: No Alcohol use: none Drug use: none, other Internal Medicine - H&P: Meds Divalproex (24 HR) [Depakote ER (24 HR)] 500 mg PO BID 04/05/16 [History] Gabapentin [Gabapentin] 600 mg PO TID 04/05/16 [History] HydrOXYzine Pamoate [HydrOXYzine Pamoate] 50 mg PO TID 04/05/16 [History] Vantage Carbonate 300 mg PO TID 04/05/16 [History] Mirtazapine [Mirtazapine] 45 mg PO HS 04/05/16 [History] Nicotine Patch [Nicoderm] 21 mg TD DAILY 04/05/16 [History] Prazosin HCl [Prazosin HCl] 2 mg PO HS 04/05/16 [History] Prazosin [Minipress] 1 mg PO HS 04/05/16 [History] Ranitidine HCl [Acid Fast Food Cashier] 150 mg PO BID 04/05/16 [History] RisperiDONE [Risperidone] 2 mg PO DAILY 04/05/16 [History] Allergies Carbinoxamine [From Rondec] Allergy (Verified 04/05/16 06:51) Swelling of Lip/Tongue/Throat chlorpheniramine [From Cardec (phenylephrin-chlorphn)] Allergy (Verified 06:51) Swelling of Lip/Tongue/Throat phenylephrine [From Cardec (phenylephrin-chlorphn)] Allergy (Verified 04/05/16 06:51) Swelling of Lip/Tongue/Throat pseudoephedrine [From Rondec] Allergy (Verified 04/05/16 06:51) Swelling of Lip/Tongue/Throat All Systems PM: A 10-system review of systems was performed and is negative for pertinent findings except as documented above in the HPI. - Constitutional Vitals: Temp Pulse Resp BP Pulse Ox 97.8 F 100 16 104/70 98 04/05/16 00:05 04/05/16 05:53 04/05/16 05:53 04/05/16 05:53 04/05/16 05:53 Internal Med - H&P Results - Labs CBC & Chem 7: 04/05/16 04:13 04/04/16 23:14 - VTE Reasons for not Prescribing Prophylaxis: Treatment not Indicated - Low risk for VTE
[2016-04-05] MEDS ORDERED: Gabapentin 100 MG CAPSULE PO SCH (09:00)
--- NOTE | 2016-04-05 09:19 | Neurology - Consult Note ---
<Carlos Carey - Last Filed: 04/05/16 09:26> Date of Encounter: 04/05/16 Time of Encounter: 09:19 Assessment and Plan (1) Seizure-like activity Current Visit: Yes Status: Acute Patient admitted to the hospital for seizure like activity. I spoke with her significant other at bedside who reports a history of seizures and that she takes gabapentin for this. He is unable to verify if she has ever seen a neurologist or had a formal workup for seizures. He reports no inciting events that he can recall including trauma or recent illnesses. The patient did have a leukocytosis on her initial labs however in the absence of obvious source this is most likely a stress response. She also had a lactic acidosis which has corrected with IV fluids. No other gross abnormalities on her lab work explaining a metabolic etiology of her symptoms. Her drug screen was negative. Of note she does have a documented history of benzodiazepine abuse. She was also recently evaluated for suicidal ideation. Concern that this could be a suicide attempt or an adverse medication side effect or withdrawal from an unknown substance. CT scan of the head performed in the emergency department shows no acute findings. She did receive Ativan and Haldol while there and is somnolent on exam but maintaining her airway. Recommend EEG for evaluation. Will discuss further with Dr. Perales for recommendations. History of Present Illness Chief complaint: Seizure HPI: Ms. Torres is a 36 year old female history of major depressive disorder, seizures reportedly on gabapentin for this who initially presented to the emergency department due to seizure like activity. History is obtained by significant other at bedside as the patient is unable to answer questions. He reports that overnight the patient had 4 episodes of seizure-like activity. He states that she first appeared dazed and then very pale and then went into general convulsions of her upper and lower extremities with her eyes rolling back in her head and unresponsiveness. Denies bowel or bladder incontinence. States the episodes lasted for a few minutes. He reports that she return to baseline after one event but was not responsive after the subsequent events. EMS was called and patient was transported to the emergency department. It appears from the ER note that the patient was initially combative requiring physical restraints and Haldol. She had some seizure-like activity there and was given Ativan as well. CT of the head was unremarkable for acute findings. She was noted to have a leukocytosis as well as lactic acidosis which has resolved with IV fluids. Urine tox is negative as well. Patient is unable to contribute to the history taking. Significant other reports that he was concerned because this episode was different than her prior seizures. He states the duration and intensity were increased during this episode. He reports that her PCP has giving her Neurontin for her seizures. He is unsure if she has ever seen a neurologist. I reviewed the patient's previous admissions to this hospital. Of note she has had previous admissions for major depression and suicidal ideation. She was also seen because she mixed up her Haldol with her sleeping pill. Patient is on mirtazapine and I checked the pill bottle in the room. There were a few extra missing but the significant other states after the medication mixup they started using a pill vasquez at home. He reports that she has been her normal self otherwise. No recent illnesses. It is also documented that she has a history of benzodiazepine abuse as well as opioid dependence. Past Med Surg Social Fam HX - Past Medical History Attestation: Yes The following information was validated with the patient. Source: old records reviewed, obtained from family Medical history: GERD, hepatitis, seizures, other Psychiatric history: bipolar, depression, PTSD - Past Surgical History Surgical History: other - Social History Smoking Status: Current every day smoker Smokeless Tobacco Status: No Alcohol use: none Drug use: none, other Medications and Allergies Cephalexin 500 mg PO QID 04/05/16 [History] Divalproex (24 HR) [Depakote ER (24 HR)] 1,000 mg PO HS 04/05/16 [History] Gabapentin [Gabapentin] 600 mg PO TID 04/05/16 [History] HydrOXYzine Pamoate [HydrOXYzine Pamoate] 50 mg PO TID 04/05/16 [History] [place] Carbonate 300 mg PO TID 04/05/16 [History] Mirtazapine [Mirtazapine] 45 mg PO HS 04/05/16 [History] Nicotine Patch [Nicoderm] 21 mg TD DAILY 04/05/16 [History] Prazosin HCl [Prazosin HCl] 2 mg PO HS 04/05/16 [History] Prazosin [Minipress] 1 mg PO HS 04/05/16 [History] Ranitidine HCl [Acid Pre Sales Systems Engineer] 150 mg PO BID 04/05/16 [History] RisperiDONE [Risperidone] 2 mg PO DAILY 04/05/16 [History] Allergies Carbinoxamine [From Rondec] Allergy (Verified 04/05/16 06:51) Swelling of Lip/Tongue/Throat chlorpheniramine [From Cardec (phenylephrin-chlorphn)] Allergy (Verified 06:51) Swelling of Lip/Tongue/Throat phenylephrine [From Cardec (phenylephrin-chlorphn)] Allergy (Verified 04/05/16 06:51) Swelling of Lip/Tongue/Throat pseudoephedrine [From Rondec] Allergy (Verified 04/05/16 06:51) Swelling of Lip/Tongue/Throat ROS unobtainable: due to mental status All Systems: A 10-system review of systems was performed and is negative for pertinent findings except as documented above in the HPI. Physical Examination - Vital Signs Vital Signs: Initial Vital Signs Temp Pulse Resp BP Pulse Ox 97.6 F 125 22 87/70 93 L 04/04/16 22:24 04/04/16 22:24 04/04/16 22:24 04/04/16 22:24 04/04/16 22:24 - Constitutional General appearance: other (Sonorous respirations, opens eyes to voice or painful stimuli. Exam is very limited due to patient's current mental status and compliance. She will not follow any commands when prompted. I do not see any gross lacerations to the tongue. Her pupils are equal and reactive to light. She will arouse when you yell her name or shake her arms but quickly drifts back to sleep.) - Neurologic Mental Status Examination: drowsy, opens eyes to voice, opens eyes to noxious stimulation Cranial nerve examination: PERRL Results - Laboratory Findings CBC and BMP: 04/05/16 04:13 04/04/16 23:14 Abnormal lab findings: Abnormal lab results WBC 18.8 K/mcL (4.3-11.1) H 04/05/16 04:13 RBC 3.48 M/mcL (3.82-4.97) L 04/05/16 04:13 Hct 33.3 % (35.3-44.9) L 04/05/16 04:13 Neutrophils # 16.5 K/mcL (1.6-8.9) H 04/05/16 04:13 PT 12.6 Seconds (9.4-12.1) H 04/04/16 23:14 Carbon Dioxide 11 mEq/L (19-29) L 04/04/16 23:14 Creatinine 1.19 mg/dL (0.57-1.11) H 04/04/16 23:14 Est GFR (Non-Af Amer) 52 (> 60) L 04/04/16 23:14 Glucose 230 mg/dL (70-99) H 04/04/16 23:14 POC Glucose 120 (58-89) H 04/05/16 03:47 Calculated Osmolality 301 (280-300) H 04/04/16 23:14 Alkaline Phosphatase 35 Units/L (38-126) L 04/04/16 23:14 Salicylates < 5.0 mg/dL (15-30) L 04/04/16 23:14 Acetaminophen < 1.0 mcg/mL (10-30) L 04/04/16 23:14 Phenytoin < 0.5 mcg/mL (10-20) L 04/05/16 01:00 Consult Discharge Plan - Plan Referrals: NO,PCP [Non-Partnered Physician] - <Jennifer Perales I - Last Filed: 04/05/16 14:51> Assessment and Plan (1) Seizure-like activity Current Visit: Yes Status: Acute pt seen and examined agree with Dr Carey documentation, will review EEG, at the moment no new meds Abhishek perales MD History of Present Illness HPI: Ms. Torres is a 36 year old female All Systems: A 10-system review of systems was performed and is negative for pertinent findings except as documented above in the HPI. Physical Examination - Vital Signs Vital Signs: Initial Vital Signs Temp Pulse Resp BP Pulse Ox 97.6 F 125 22 87/70 93 L 04/04/16 22:24 04/04/16 22:24 04/04/16 22:24 04/04/16 22:24 04/04/16 22:24 Results - Laboratory Findings CBC and BMP: 04/05/16 04:13 04/04/16 23:14 Abnormal lab findings: Abnormal lab results WBC 18.8 K/mcL (4.3-11.1) H 04/05/16 04:13 RBC 3.48 M/mcL (3.82-4.97) L 04/05/16 04:13 Hct 33.3 % (35.3-44.9) L 04/05/16 04:13 Neutrophils # 16.5 K/mcL (1.6-8.9) H 04/05/16 04:13 PT 12.6 Seconds (9.4-12.1) H 04/04/16 23:14 Carbon Dioxide 11 mEq/L (19-29) L 04/04/16 23:14 Creatinine 1.19 mg/dL (0.57-1.11) H 04/04/16 23:14 Est GFR (Non-Af Amer) 52 (> 60) L 04/04/16 23:14 Glucose 230 mg/dL (70-99) H 04/04/16 23:14 POC Glucose 116 (58-89) H 04/05/16 11:14 Calculated Osmolality 301 (280-300) H 04/04/16 23:14 Alkaline Phosphatase 35 Units/L (38-126) L 04/04/16 23:14 Salicylates < 5.0 mg/dL (15-30) L 04/04/16 23:14 Acetaminophen < 1.0 mcg/mL (10-30) L 04/04/16 23:14 Phenytoin < 0.5 mcg/mL (10-20) L 04/05/16 01:00
--- NOTE | 2016-04-05 10:20 | Event Note ---
<Jonatan Zamarripa - Last Filed: 04/05/16 11:39> Date of Encounter: 04/05/16 Time of Encounter: 10:12 Patient is obtunded. She opens her eyes to verbal/physical stimuli, but is otherwise unresponsive. She was given haldol, ativan, zofran, and keppra in the ER. Will check on patient again once she is more conscious. Life partner was at bedside and was able to provide a history. Patient has history of bipolar disorder and siezure disorder. She is on gabapentin, lithium, and mitrazipine at home. Partner states that she had 5 seizures last night, and has been non- verbal since the second seizure. He states that she does not used illicit drugs or drinks. He does state that she smokes. Tox screen was negative. Consider withdrawal. Lactic acid is elevated which is concerning for seizure. Patient is also on suboxone and has history of suicidal ideation in the past. Seizure-like activity: Neuro was consulted and will do an EEG. In the meantime, continue on keppra and ativan PRN. If patient continues to be minimally responsive, will consider MRI. Continue fluids for support as she had some DEYANIRA. <Kurtis Cohen - Last Filed: 04/05/16 18:12> I examined this patient and my medical decision-making was reviewed with the SWINGING CUT OFF SAW OPERATOR/PA/Advanced Practice Nurse/Resident Physician. I agree with the documented findings, disposition and treatment plan as described except to the extent set forth below.
[2016-04-05] MEDS: Divalproex (24 HR) 500 MG TABLET PO SCH ×2 (10:35→20:28)
[2016-04-05] MEDS: hydrOXYzine pamoate 25 MG CAPSULE PO SCH ×3 (10:35→20:33)
[2016-04-05] MEDS: Lithium Carbonate 300 MG CAPSULE PO SCH ×3 (10:36→20:27)
[2016-04-05] MEDS: Famotidine 20 MG TABLET PO SCH ×2 (10:36→20:28)
[2016-04-05] MEDS: Gabapentin 300 MG CAPSULE PO SCH ×3 (10:36→20:27)
[2016-04-05] MEDS: risperiDONE 1 MG TABLET PO SCH (10:37)
[2016-04-05] MEDS: Ringers Solution, Lactated 1,000 ML IVC SCH (10:39)
[2016-04-05] MEDS: Nicotine 21 MG PATCH.TD24 TD SCH (12:46)
--- NOTE | 2016-04-05 13:27 | Electrocardiograph Report ---
[facility] Test Date: 2016-04-05 Pat Name: Miranda Torres Department: 103 Room: 3B16 Gender: F Director Media: MINERVA : 1980 Requested By: Vidal Gao Order Number: [id number] Reading MD: Ema Ching Measurements Intervals [place] Rate: 104 P: 72 MS: 150 QRS: 73 QRSD: 86 T: 6 QT: 302 QTc: 362 Interpretive Statements SINUS TACHYCARDIA POSSIBLE RIGHT ATRIAL ENLARGEMENT POSSIBLE LEFT ATRIAL ENLARGEMENT NONSPECIFIC T-WAVE ABNORMALITY ABNORMAL RHYTHM ECG Electronically Signed On 04-05-16 13:25:52 EST by Ema Ching
--- NOTE | 2016-04-05 14:48 | EEG/EMG/Oth Biometrics Report ---
EEG Procedure Report Date of procedure: 04/05/16 EEG Procedure: Routine EEG Procedure Note: Routine EEG Routine 18-channel digital EEG was obtained to rule out any seizure activity or focal abnormalities. FINDINGS: Background rhythm during awake stage shows well-organized, well- developed, average voltage 8 to 9 hertz alpha activity in the posterior regions. It blocks with eye opening and it is bilaterally synchronous and symmetrical. No [id number] discharges or any lateralizing abnormalities are seen. Photic stimulation did not produce any abnormalities. Hyperventilation was not performed. No abnormalities were found during the procedure. Intermittent EMG artifacts were seen predominantly frontal leads . Stage II sleep was not achieved. intermittent slowing noted. IMPRESSION: Normal awake study. No epileptiform discharges or any other paroxysmal activities or focal abnormalities seen. Clinical correlation is recommended.
[2016-04-05] MEDS ORDERED: Stomatitis Mixture 5 ML UDC PO PRN (15:56)
[2016-04-05] MEDS ORDERED: GI Cocktail 40 ML EACH PO PRN (16:24)
[2016-04-05] MEDS ORDERED: levETIRAcetam 250 MG TABLET PO SCH ×2 (18:00)
[2016-04-05] MEDS: levETIRAcetam 250 MG TABLET PO SCH (20:24)
[2016-04-05] MEDS ORDERED: Mirtazapine 15 MG TABLET PO SCH (21:00)
[2016-04-06 03:35] LABS: Basophils # 0.1 K/mcL (0.0-0.2); Basophils % 0.6 %; Eosinophils # 0.1 K/mcL (0.0-0.6); Eosinophils % 1.5 %; Hematocrit 34.6 % (35.3-44.9); Hemoglobin 11.4 g/dL (11.5-15.4); Immature Granulocytes % 0.4 % (0-4); Lymphocytes # 3.5 K/mcL (0.6-4.6); Lymphocytes % 43.4 %; Mean Corpuscular HGB Conc 32.9 g/dL (31.6-35.5); Mean Corpuscular Hemoglobin 32.9 pg (28.0-33.3); Mean Corpuscular Volume 99.7 fL (83.0-100.0); Monocytes # 0.7 K/mcL (0.0-1.3); Neutrophils # 3.7 K/mcL (1.6-8.9); Platelet Count 186 K/mcL (140-400); Red Blood Count 3.47 M/mcL (3.82-4.97); Red Cell Distribution Width 14.3 % (11.5-14.5); Segmented Neutrophils % 45.1 %
[2016-04-06 03:50] LABS: BUN/Creatinine Ratio 9 (6-26); Blood Urea Nitrogen 6 mg/dL (7-20); Calcium 8.9 mg/dL (8.6-10.8); Carbon Dioxide 23 mEq/L (19-29); Chloride 112 mEq/L (98-109); Glucose 103 mg/dL (70-99); Osmolality,Calculated 292 (280-300); Potassium 3.4 mEq/L (3.5-4.5); Sodium 142 mEq/L (136-145); eGFR For African Americans > 60 (> 60); eGFR For Non-African Americans > 60 (> 60)
[2016-04-06] MEDS: Ringers Solution, Lactated 1,000 ML IVC SCH ×3 (04:00→12:49)
[2016-04-06] MEDS: levETIRAcetam 250 MG TABLET PO SCH ×2 (06:01→17:24)
--- NOTE | 2016-04-06 09:09 | Internal Med Progress Note ---
<Jonatan Zamarripa - Last Filed: 04/06/16 16:12> Date of Encounter: 04/06/16 Time of Encounter: 09:08 - Assessment and plan (1) Seizure-like activity Current Visit: Yes Status: Acute Assessment and plan: Neurology consulted and performed EEG yesterday, which was negative, and have signed off They have recommended her to continue her home medications and follow up with PCP At this point, patient is still not at baseline as she still appears lethargic and flat affect Will continue seizure-precautions and continue on Keppra while inpatient Likely discharge home tomorrow if mental status improves and no additional seizure activities (2) Bipolar disorder Current Visit: Yes Status: Chronic Assessment and plan: Continue with home Depakote and [place] Qualifiers: Qualified Code(s): F31.9 - Bipolar disorder, unspecified (3) DVT prophylaxis Current Visit: Yes Status: Acute Assessment and plan: Heparin 5000 units BID - Subjective Interval history: Pt seen and examined. She is awake and alert this morning eating her breakfast. She thinks it is the year 2014 but otherwise is oriented to person and place. She states she has no memory of the event and can't remember what she was doing before or right after she regained consciousness. Denies any pain, shortness of breath, nausea, vomiting, diarrhea or fevers. - Constitutional Vitals: Temp Pulse Resp BP Pulse Ox 97.7 F 97 16 109/72 97 04/06/16 06:44 04/06/16 06:44 04/06/16 06:44 04/06/16 06:44 04/06/16 06:44 General appearance: Present: A&O X 2 (thinks it's 2014), pleasant, no acute distress, answers questions appropriately - Head Head exam: Present: atraumatic, normocephalic - Eye Eye exam: Present: PERRL, conjuntiva pink, sclera anicteric - Neck Neck exam general surgery: Present: supple, trachea midline. Absent: lymphadenopathy - Respiratory Respiratory exam: Present: CTAB. Absent: accessory muscle use, rales, rhonchi, wheezes - Cardiovascular Cardiovascular exam: Present: RRR, +S1, +S2. Absent: diastolic murmur, gallop, rubs, systolic murmur - GI/Abdominal GI/Abdominal exam: Present: normal bowel sounds, soft, no peritoneal signs. Absent: distended, tenderness - Extremities Exam Extremities exam: Present: warm, radial pulses palpable and symetrical. Absent : calf tenderness, cyanotic, pedal edema - Neurological Exam Neurological exam: Present: alert, no focal deficits. Absent: oriented X3, facial droop, speech deficit - Psychiatric Psychiatric exam: Present: flat affect - Skin Skin exam: Present: dry, intact Internal Medicine: Result - Labs CBC & Chem 7: 04/06/16 03:00 04/06/16 03:00 Labs: Short CBC 04/06/16 Range/Units 03:00 WBC 8.1 D (4.3-11.1) K/mcL Hgb 11.4 L (11.5-15.4) g/dL Hct 34.6 L (35.3-44.9) % Plt Count 186 (140-400) K/mcL Neutrophils # 3.7 (1.6-8.9) K/mcL BMP 04/06/16 03:00 Sodium 142 Potassium 3.4 L Chloride 112 H Carbon Dioxide 23 BUN 6 L Creatinine 0.69 Glucose 103 H Calcium 8.9 - ABG Interpretation ABG results: PT/INR, D-dimer PT 12.6 Seconds (9.4-12.1) H 04/04/16 23:14 - VTE Reasons for not Prescribing Prophylaxis: Treatment not Indicated - Low risk for VTE Consult Discharge Plan - Plan Referrals: NO,PCP [Non-Partnered Physician] - <Kurtis Cohen - Last Filed: 04/06/16 18:48> - Constitutional Vitals: Temp Pulse Resp BP Pulse Ox 98.2 F 82 16 97/66 100 04/06/16 15:29 04/06/16 15:29 04/06/16 15:29 04/06/16 15:29 04/06/16 15:29 Internal Medicine: Result - Labs CBC & Chem 7: 04/06/16 03:00 04/06/16 03:00 Labs: Short CBC 04/06/16 Range/Units 03:00 WBC 8.1 D (4.3-11.1) K/mcL Hgb 11.4 L (11.5-15.4) g/dL Hct 34.6 L (35.3-44.9) % Plt Count 186 (140-400) K/mcL Neutrophils # 3.7 (1.6-8.9) K/mcL BMP 04/06/16 03:00 Sodium 142 Potassium 3.4 L Chloride 112 H Carbon Dioxide 23 BUN 6 L Creatinine 0.69 Glucose 103 H Calcium 8.9 - ABG Interpretation ABG results: PT/INR, D-dimer PT 12.6 Seconds (9.4-12.1) H 04/04/16 23:14 - Attending Attestation I examined this patient and my medical decision-making was reviewed with the AVICULTURIST/PA/Advanced Practice Nurse/Resident Physician. I agree with the documented findings, disposition and treatment plan as described except to the extent set forth below.
[2016-04-06] MEDS: Nicotine 21 MG PATCH.TD24 TD SCH (09:10)
[2016-04-06] MEDS: hydrOXYzine pamoate 25 MG CAPSULE PO SCH ×2 (09:10→14:45)
[2016-04-06] MEDS: Lithium Carbonate 300 MG CAPSULE PO SCH ×2 (09:10→14:45)
[2016-04-06] MEDS: Gabapentin 300 MG CAPSULE PO SCH ×2 (09:10→14:45)
[2016-04-06] MEDS: Divalproex (24 HR) 500 MG TABLET PO SCH (09:10)
[2016-04-06] MEDS: risperiDONE 1 MG TABLET PO SCH (09:11)
[2016-04-06] MEDS: Famotidine 20 MG TABLET PO SCH (09:12)
--- NOTE | 2016-04-06 10:40 | Neurology Progress Note ---
Date of Encounter: 04/06/16 Time of Encounter: 10:40 Assessment and Plan (1) Seizure-like activity Current Visit: Yes Status: Acute EEG from yesterday shows no epileptiform activity. Patient is currently alert and answering questions appropriately in the room. Seems to be back to her baseline. Discussed continuing all her medications as previously prescribed and following up with her primary care provider in the next 1-2 weeks once she is discharged home. Neurology will sign off. Subjective Principal diagnosis: Seizure-like activity Interval history: Patient is awake opening eyes spontaneously this morning and is interacting appropriately. She reports feeling better this morning as well. I discussed results of her EEG from yesterday. She has no other questions. She was instructed to continue her medications she was previously on and follow up with her primary care provider. Objective - Constitutional Vitals: Temp Pulse Resp BP Pulse Ox 97.7 F 97 16 109/72 97 04/06/16 06:44 04/06/16 06:44 04/06/16 06:44 04/06/16 06:44 04/06/16 09:08 General appearance: Present: A&O X 3, pleasant, no acute distress - Head Head exam: Present: atraumatic, normal inspection, normocephalic - Eye Eye exam: Present: EOMI, normal appearance. Absent: conjunctival injection - Extremities Exam Extremities exam: Present: full ROM, normal inspection - Neurological Exam Sensorimotor examination: Present: intact Motor Examination: Present: grossly full strength in all extremities Sensation intact: Present: intact Mental Status Examination: Present: awake, alert, oriented to person, oriented to place, oriented to time, follows commands appropriately, answers questions appropriately, no aphasia, opens eyes to voice, opens eyes to noxious stimulation Cranial nerve examination: Present: PERRL, EOMI, no dysarthria - VTE Reasons for not Prescribing Prophylaxis: Treatment not Indicated - Low risk for VTE Results - Laboratory Findings CBC and BMP: 04/06/16 03:00 04/06/16 03:00 Abnormal lab findings: Abnormal lab results RBC 3.47 M/mcL (3.82-4.97) L 04/06/16 03:00 Hgb 11.4 g/dL (11.5-15.4) L 04/06/16 03:00 Hct 34.6 % (35.3-44.9) L 04/06/16 03:00 PT 12.6 Seconds (9.4-12.1) H 04/04/16 23:14 Potassium 3.4 mEq/L (3.5-4.5) L 04/06/16 03:00 Chloride 112 mEq/L (98-109) H 04/06/16 03:00 BUN 6 mg/dL (7-20) L 04/06/16 03:00 Glucose 103 mg/dL (70-99) H 04/06/16 03:00 POC Glucose 116 (58-89) H 04/05/16 11:14 Alkaline Phosphatase 35 Units/L (38-126) L 04/04/16 23:14 Salicylates < 5.0 mg/dL (15-30) L 04/04/16 23:14 Acetaminophen < 1.0 mcg/mL (10-30) L 04/04/16 23:14 Phenytoin < 0.5 mcg/mL (10-20) L 04/05/16 01:00 Consult Discharge Plan - Plan Referrals: NO,PCP [Non-Partnered Physician] -
[2016-04-06 15:29] VITALS: BP 97/66
[2016-04-06] MEDS ORDERED: *HR* Heparin 5,000 UNIT/ML VIAL SQ SCH (18:00)
--- NOTE | 2016-04-15 23:21 | Discharge Summary ---
Date of Encounter: 04/06/16 Time of Encounter: 19:00 - Discharge Diagnosis (1) Seizures Priority: Primary Status: Acute (2) PTSD (post-traumatic stress disorder) Priority: Primary Status: Acute (3) Opiate abuse, episodic Priority: Primary Status: Acute - Discharge Medications Home Medications: Cephalexin 500 mg PO QID 04/05/16 [History] Divalproex (24 HR) [Depakote ER (24 HR)] 1,000 mg PO HS 04/05/16 [History] Gabapentin [Gabapentin] 600 mg PO TID 04/05/16 [History] HydrOXYzine Pamoate [HydrOXYzine Pamoate] 50 mg PO TID 04/05/16 [History] [place] Carbonate 300 mg PO TID 04/05/16 [History] Mirtazapine [Mirtazapine] 45 mg PO HS 04/05/16 [History] Nicotine Patch [Nicoderm] 21 mg TD DAILY 04/05/16 [History] Prazosin HCl [Prazosin HCl] 2 mg PO HS 04/05/16 [History] Prazosin [Minipress] 1 mg PO HS 04/05/16 [History] Ranitidine HCl [Acid Orthotic Finish Grinding Technician] 150 mg PO BID 04/05/16 [History] RisperiDONE [Risperidone] 2 mg PO DAILY 04/05/16 [History] Allergies/Adverse Reactions: Allergies Carbinoxamine [From Rondec] Allergy (Verified 04/05/16 06:51) Swelling of Lip/Tongue/Throat chlorpheniramine [From Cardec (phenylephrin-chlorphn)] Allergy (Verified 06:51) Swelling of Lip/Tongue/Throat phenylephrine [From Cardec (phenylephrin-chlorphn)] Allergy (Verified 04/05/16 06:51) Swelling of Lip/Tongue/Throat pseudoephedrine [From Rondec] Allergy (Verified 04/05/16 06:51) Swelling of Lip/Tongue/Throat Date of admission: 04/05/16 13:50 Primary care physician: Trudi Gil Discharging clinician: Kurtis Cohen - Patient Status Disposition: Left Against Medical Advice Condition: Fair - Discharge Instructions Follow Up With: NO,PCP [Non-Partnered Physician] - Hospital course: Ms. Torres is a 36 year old female was admitted for seizures. She was evaluated by neurology. Patient was getting treatment from neurology. Patient signed off a week. This july she signed after my duty and was I am not aware exactly what made her sign the paperwork. - Time Spent with Patient Total time spent providing and/or coordinating discharge services: - Constitutional Vitals: Temp Pulse Resp BP Pulse Ox 98.2 F 82 16 97/66 100 04/06/16 15:29 04/06/16 15:29 04/06/16 15:29 04/06/16 15:29 04/06/16 15:29 General appearance: Present: A&O X 2 (thinks it's 2014), pleasant, no acute distress, answers questions appropriately - VTE Reasons for not Prescribing Prophylaxis: Treatment not Indicated - Low risk for VTE
== END 2016-04-06 19:08 | disposition left against medical advice (07) | DRG 53 ==
LOC: EMEROO 22:21 → 3BNU 22:21
PROVIDERS: ADMIT Family Medicine; ATTEND Nurse Practitioner Family

== ENCOUNTER 2021-10-09 14:52 | Inpatient (IN) ==
[2021-10-09 15:22] LABS: Amorphous Sediment,Urine Few per hpf (None-Few); Bacteria,Urine Few per hpf (None-Few); Bilirubin,Urine Negative (Negative); Blood,Urine Negative (Negative); Clarity,Urine Turbid (Clear); Color,Urine Yellow (Yellow); Glucose,Urine (UA) Normal (Normal); Ketones,Urine Negative (Negative); Leukocyte Esterase,Urine Negative (Negative); Mucus,Urine Many per lpf (None-Few); Nitrite,Urine Negative (Negative); PH,Urine 6.5 pH Units (5.0-8.0); Protein,Urine 70 mg/dL (Neg-Trace); Specific Gravity,Urine > 1.030 (1.010-1.025); Squamous Epithelial Cell,Urine Moderate per hpf (None-Few)
[2021-10-09 15:34] LABS: Amphetamine Screen,Urine Positive ng/mL (Cutoff=1000); Barbiturate Screen,Urine Negative ng/mL (Cutoff=200); Benzodiazepines Screen,Urine Negative ng/mL (Cutoff=200); Cannabinoid Screen,Urine Negative ng/mL (Cutoff = 50); Cocaine Screen,Urine Negative ng/mL (Cutoff= 300); Opiate Screen,Urine Positive ng/mL (Cutoff=300); Phencyclidine Screen,Urine Negative ng/mL (Cutoff=25)
[2021-10-09 16:22] LABS: Basophils % 0.7 %; Eosinophils # 0.2 K/mcL (0.0-0.6); Hematocrit 41.4 % (35.3-44.9); Hemoglobin 13.8 g/dL (11.5-15.4); Immature Granulocytes % 0.4 % (0-4); Lymphocytes # 1.9 K/mcL (0.6-4.6); Lymphocytes % 33.6 %; Mean Corpuscular HGB Conc 33.3 g/dL (31.6-35.5); Mean Corpuscular Hemoglobin 32.5 pg (28.0-33.3); Mean Corpuscular Volume 97.4 fL (83.0-100.0); Mean Platelet Volume 10.4 fL (9.4-12.4); Monocytes # 0.5 K/mcL (0.0-1.3); Monocytes % 8.7 %; Platelet Count 295 K/mcL (140-400); Red Blood Count 4.25 M/mcL (3.82-4.97); Red Cell Distribution Width 12.5 % (11.5-14.5); Segmented Neutrophils % 53.6 %; White Blood Count 5.7 K/mcL (4.3-11.1)
[2021-10-09 16:43] LABS: Acetaminophen 11 mcg/mL (10-20); Alanine Aminotransferase 15 Units/L (7-52); Albumin/Globulin Ratio 1.6 (1.1-2.2); Alkaline Phosphatase 21 Units/L (34-104); Aspartate Amino Transferase 14 Units/L (13-39); BUN/Creatinine Ratio 27 (6-26); Bilirubin,Direct 0.1 mg/dL (0.0-0.2); Bilirubin,Indirect 0.6 mg/dL (0.0-1.0); Bilirubin,Total 0.7 mg/dL (0.3-1.0); Blood Urea Nitrogen 20 mg/dL (6-20); Calcium 9.2 mg/dL (8.6-10.3); Carbon Dioxide 31 mEq/L (23-29); Chloride 105 mEq/L (98-107); Chol/HDL Ratio 3.6 (0-4.9); Cholesterol 133 mg/dL (< 200); Estimated Average Glucose 105 mg/dl; Ethanol < 10 mg/dL (Less than 10); Globulin 2.5 g/dL (2.4-3.5); Glucose 87 mg/dL (70-105); HDL Cholesterol 37 mg/dL (40-59); Hemoglobin A1C 5.3 %; LDL Cholesterol,Calculated 80 mg/dL (< 100); Osmolality,Calculated 292 (280-300); Potassium 3.8 mEq/L (3.5-5.1); Salicylate < 2.5 mg/dL (15.0-30.0); Sodium 140 mEq/L (136-145); Total Protein 6.5 g/dL (6.4-8.9); Triglycerides 78 mg/dL (< 150); Valproate 16 mcg/mL (50-100); eGFR For African Americans > 60 (> 60); eGFR For Non-African Americans > 60 (> 60)
[2021-10-09 16:55] LABS: Thyroid Stimulating Hormone 0.869 mcIU/mL (0.340-5.600)
[2021-10-09 19:57] LABS: Influenza A PCR Negative (Negative); Influenza B PCR Negative (Negative); Resp. Syncytial Virus PCR Negative (Negative)
[2021-10-09 20:02] LABS: SARS-CoV-2 by PCR (In House) Positive (Negative)
[2021-10-09] MEDS ORDERED: Naloxone 0.4 MG/ML INJ IVP PRN (21:22)
[2021-10-09] MEDS ORDERED: Ondansetron ODT 4 MG TAB.RAPDIS SL PRN (21:22)
[2021-10-09] MEDS ORDERED: Melatonin 3 MG TABLET PO PRN (21:22)
[2021-10-09] MEDS ORDERED: Haloperidol Lactate 5 MG/ML VIAL IVP PRN (21:26)
[2021-10-09] MEDS ORDERED: 0.9 % Sodium Chloride 1,000 ML IVC SCH (21:30)
[2021-10-09] MEDS: OXcarbazepine 150 MG TABLET PO SCH (23:40)
[2021-10-10 02:23] LABS: Hematocrit 39.9 % (35.3-44.9); Hemoglobin 13.3 g/dL (11.5-15.4); Mean Corpuscular HGB Conc 33.3 g/dL (31.6-35.5); Mean Corpuscular Volume 96.1 fL (83.0-100.0); Mean Platelet Volume 10.2 fL (9.4-12.4); Platelet Count 265 K/mcL (140-400); Red Blood Count 4.15 M/mcL (3.82-4.97); Red Cell Distribution Width 12.4 % (11.5-14.5); White Blood Count 4.3 K/mcL (4.3-11.1)
[2021-10-10 02:42] LABS: Alanine Aminotransferase 14 Units/L (7-52); Albumin 3.7 g/dL (3.5-5.7); Albumin/Globulin Ratio 1.6 (1.1-2.2); Alkaline Phosphatase 18 Units/L (34-104); Aspartate Amino Transferase 15 Units/L (13-39); BUN/Creatinine Ratio 30 (6-26); Bilirubin,Total 0.5 mg/dL (0.3-1.0); Blood Urea Nitrogen 18 mg/dL (6-20); Calcium 8.8 mg/dL (8.6-10.3); Carbon Dioxide 27 mEq/L (23-29); Chloride 107 mEq/L (98-107); Globulin 2.3 g/dL (2.4-3.5); Glucose 88 mg/dL (70-105); Magnesium 1.7 mg/dL (1.6-2.6); Osmolality,Calculated 289 (280-300); Phosphorous 3.6 mg/dL (2.7-4.5); Potassium 3.4 mEq/L (3.5-5.1); Sodium 139 mEq/L (136-145); eGFR For African Americans > 60 (> 60); eGFR For Non-African Americans > 60 (> 60)
[2021-10-10] MEDS: *HR* Enoxaparin 40 MG/0.4 ML SYRINGE SQ SCH (03:27)
[2021-10-10] MEDS: OXcarbazepine 150 MG TABLET PO SCH ×2 (07:50→20:28)
[2021-10-10] MEDS: Nicotine 7 MG PATCH.TD24 TD SCH (14:34)
[2021-10-10] MEDS ORDERED: *HR* LORazepam 2 MG/ML VIAL IVP ONE (20:14)
[2021-10-10] MEDS: OLANZapine 5 MG TAB.RAPDIS PO SCH (20:28)
[2021-10-11] MEDS: *HR* Enoxaparin 40 MG/0.4 ML SYRINGE SQ SCH (05:33)
[2021-10-11] MEDS: OXcarbazepine 150 MG TABLET PO SCH ×2 (08:25→20:29)
[2021-10-11] MEDS: Nicotine 7 MG PATCH.TD24 TD SCH (08:25)
[2021-10-11] MEDS: OLANZapine 5 MG TAB.RAPDIS PO SCH (20:29)
[2021-10-12] MEDS: *HR* Enoxaparin 40 MG/0.4 ML SYRINGE SQ SCH (05:19)
[2021-10-12 06:13] LABS: BUN/Creatinine Ratio 32 (6-26); Blood Urea Nitrogen 22 mg/dL (6-20); Carbon Dioxide 29 mEq/L (23-29); Chloride 106 mEq/L (98-107); Glucose 90 mg/dL (70-105); Magnesium 1.8 mg/dL (1.6-2.6); Osmolality,Calculated 291 (280-300); Phosphorous 4.6 mg/dL (2.7-4.5); Potassium 3.7 mEq/L (3.5-5.1); Sodium 139 mEq/L (136-145); eGFR For African Americans > 60 (> 60); eGFR For Non-African Americans > 60 (> 60)
[2021-10-12 06:15] VITALS: PULSE 73
[2021-10-12] MEDS: Nicotine 7 MG PATCH.TD24 TD SCH (09:44)
[2021-10-12] MEDS: OXcarbazepine 150 MG TABLET PO SCH (09:44)
[2021-10-12 10:04] VITALS: BP 98/58; TEMP 97.5; O2SAT 98
== END 2021-10-12 13:44 | disposition home or self-care (01) | DRG 751 ==
LOC: EMEROOARM 14:52 → 3BNU 14:52 → SUATTDRO 21:46 → 3BNU 22:11
PROVIDERS: ADMIT Internal Medicine; ATTEND Internal Medicine